=== PATIENT | male | born 1960 | race Caucasian/White ===

== ENCOUNTER 2016-07-17 19:54 | Emergency (ER) | payer OTHER ==
[~2016-07-17 19:54] MED LIST: ADVAIR DISKUS 21 DSK IH; AMOXICILLIN500 MG PO; COLACE100 M1 PO; COZAAR50 MG PO; FLOMAX0.4 MG PO; GABAPENTIN100 M1 PO; HTN MED?; LEVAQUIN500 MG PO; LOSARTAN POTAS100 MG PO; LYRICA50 MG PO; MS-CONTIN15 MG PO; NAPROSYN500 MG PO; NEURONTIN300 MG PO; NORCO 10/325 MG1 TAB PO; NORCO 325 MG-7.1 TAB PO; NORCO 5/325 MG1 TAB PO; NORVASC10 MG PO; NORVASC5 M1 PO; OXYCODONE HCL5 M1 PO; PROPRANOLOL HCL40 M1 PO; PROPRANOLOL HCL40 MG PO; PROVENTIL0.09 MG/A1 IH; ROCEPHIN1 G1 IV; SOMA350 MG PO; SPIRIVA MD18 MCG/CAP INH; TYLENOL #3 300/1 TAB PO; VENTOLIN H0.09 MG/Ac IH; VICODIN 5/500 M1 TAB PO; [UNRECOGNIZED DRUG - REMARK]; [UNRECOGNIZED DRUG - REMARK]
--- NOTE | 2016-07-17 20:32 | NUR ---
CALLED PATIENT'S NAME TWICE
--- NOTE | 2016-07-17 20:38 | NUR ---
PATIENT LEFT WITHOUT BEING SEEN BY DR. RONDON. NO FURTHER CARE PROVIDED FOR PATIENT.
[2016-09-07] MEDS ORDERED: NORVASC10 MG PO (15:35)
[2016-09-17] MEDS ORDERED: NORCO 10-325 T1 EACH PO (12:16)
[2016-09-17] MEDS ORDERED: DULCOLAX PO (12:16)
== END 2016-07-17 20:38 | disposition left against medical advice (07) ==
LOC: MED 19:54
DX: Z53.21 Procedure and treatment not carried out due to patient leaving prior to being seen by health care provider (principal)

== ENCOUNTER 2016-07-18 00:59 | Emergency (ER) | payer OTHER ==
[~2016-07-18] VITALS: Ht 182.9 cm; Wt 68.0 kg
[2016-07-18 01:14] VITALS: BP 173/113
--- NOTE | 2016-07-18 01:32 | NUR ---
PT TAKEN TO BED 6
--- NOTE | 2016-07-18 01:32 | NUR ---
56Y M BIB SELF C/O LEFT FLANK PAIN X 2 DAYS WITH HEMATURIA . PT DENIES DIARRHEA ; SKIN IS PINK/WARM/DRY; AAOX4 WITH EVEN AND STEADY GAIT; LUNGS CLEAR BL; HR EVEN AND REGULAR; PT DENIES ANY FEVER, CP, SOB, OR COUGH AT THIS TIME; PATIENT STATES PAIN OF 8/10 AT THIS TIME; VSS; PATIENT POSITIONED FOR COMFORT; HOB ELEVATED; BEDRAILS UP X2; BED DOWN. ER MD MADE AWARE OF PT STATUS.
--- NOTE | 2016-07-18 01:39 | NUR ---
Dr. Holbrook evaluating patient at bedside.
[2016-07-18] MEDS ORDERED: ACETAMINOPHEN EXTRA STRENGTH 500 MG TAB PO ONE (01:40)
[2016-07-18] MEDS ORDERED: ALBUTEROL SULFATE/IPRATROPIU 3 ML SOL IH ONE (01:55)
--- NOTE | 2016-07-18 02:00 | NUR ---
RT IS AT BEDSIDE
[2016-07-18 04:16] VITALS: BP 142/87
--- NOTE | 2016-07-18 04:16 | NUR ---
Patient discharged with v/s stable. Written and verbal after care instructions given and explained. Patient alert, oriented and verbalized understanding of instructions. Ambulatory with steady gait. All questions addressed prior to discharge. ID band removed. Patient advised to follow up with PMD. Rx of CIRPO 500MG AND FLOMAX given. Patient educated on indication of medication including possible reaction and side effects. Opportunity to ask questions provided and answered.
[2016-09-07] MEDS ORDERED: NORVASC10 MG PO (15:35)
[2016-09-17] MEDS ORDERED: DULCOLAX PO (12:16)
[2016-09-17] MEDS ORDERED: NORCO 10-325 T1 EACH PO (12:16)
== END 2016-07-18 04:16 | disposition home or self-care (01) ==
LOC: MED 00:59
DX: N20.0 Calculus of kidney (principal); N39.0 Urinary tract infection, site not specified; Z88.1 Allergy status to other antibiotic agents; I10 Essential (primary) hypertension; J44.9 Chronic obstructive pulmonary disease, unspecified; Z79.899 Other long term (current) drug therapy
CPT/HCPCS: 74176; 81001; 87086; 94640; 94664; 99285; J7620

== ENCOUNTER 2016-08-29 11:16 | Inpatient (IN) | payer OTHER ==
[~2016-08-29] VITALS: Ht 182.9 cm; Wt 68.0 kg
[~2016-08-29 11:16] MED LIST changes: -ADVAIR DISKUS 21 DSK IH; +ALBU0.0912 IH; +ALBU0.0952 IH; +AMLO10TA PO; -AMOXICILLIN500 MG PO; -COLACE100 M1 PO; -COZAAR50 MG PO; +DOCU-67 PO; -FLOMAX0.4 MG PO; +FLUT1DSK2 IH; +GABA-636 PO; -GABAPENTIN100 M1 PO; -HTN MED?; +HYDR-4452 PO; -LEVAQUIN500 MG PO; -LOSARTAN POTAS100 MG PO; -LYRICA50 MG PO; -MS-CONTIN15 MG PO; -NAPROSYN500 MG PO; -NEURONTIN300 MG PO; -NORCO 10/325 MG1 TAB PO; -NORCO 325 MG-7.1 TAB PO; -NORCO 5/325 MG1 TAB PO; -NORVASC10 MG PO; -NORVASC5 M1 PO; -OXYCODONE HCL5 M1 PO; +PROP40TA29 PO; -PROPRANOLOL HCL40 M1 PO; -PROPRANOLOL HCL40 MG PO; -PROVENTIL0.09 MG/A1 IH; -ROCEPHIN1 G1 IV; -SOMA350 MG PO; +SPIMDI INH; -SPIRIVA MD18 MCG/CAP INH; -TYLENOL #3 300/1 TAB PO; -VENTOLIN H0.09 MG/Ac IH; -VICODIN 5/500 M1 TAB PO; -[UNRECOGNIZED DRUG - REMARK]; -[UNRECOGNIZED DRUG - REMARK]
[2016-08-29 11:24] VITALS: BP 153/116
--- NOTE | 2016-08-29 11:25 | NUR ---
56/M BIB SELF C/O ABDOMINAL PAIN. S/P LAP LUIS 08/18/16. HX HTN, KIDNEY STONES, COPD. BOWEL SOUNDS PRESENT X4. ABD ROUND AND NONTENDER. DENIES FEVER. STS N/V, STS LAST VOMIT YESTERDAY. STS HAVING CONSTIPATION, LAST BM YESTERDAY MORNING BUT VERY LITTLE. ER MD MADE AWARE.
--- NOTE | 2016-08-29 11:30 | NUR ---
Patient being evaluated by physician at bedside.
[2016-08-29] MEDS ORDERED: fentaNYL 0.05 MG/ML VIAL IVP ONE ×2 (11:40→13:40)
[2016-08-29] MEDS ORDERED: ONDANSETRON 4 MG/2 ML VIAL IVP ONE (11:40)
[2016-08-29] MEDS ORDERED: NACL 0.9% 1,000 ML IV ONE (11:40)
[2016-08-29] MEDS ORDERED: ALBUTEROL 0.083% 2.5 MG/3 ML NEBU INH ONE (11:40)
[2016-08-29] MEDS ORDERED: IPRATROPIUM 0.02% 0.5 MG/2.5 ML NEBU INH ONE (11:40)
--- NOTE | 2016-08-29 11:50 | NUR ---
RADIOLOGY AT BEDSIDE
--- NOTE | 2016-08-29 11:55 | NUR ---
ADMITTING DX: ABDOMINAL PAIN HX: COPD AWAKE AND ALERT RESPONSIVE TO CANTEEN MANAGER VERBAL COMMANDS IN [facility] POSITION EDUCATION PROVIDED TO PATIENT WITH ACKNOWLEDGEMENT ON [facility] THERAPY AND RESPIRATORY DRUGS ENCORAGED DEEP BREATH AND COUGH DURING THERAPY TOLERATED WELL WITHOUT INCIDENT
--- NOTE | 2016-08-29 12:00 | NUR ---
RT AT BEDSIDE.
[2016-08-29 12:07] LABS: BASOPHILS # (AUTO) 0.2 K/uL (0.00-0.22); BASOPHILS % (AUTO) 4.9 % (0.0-2.0); EOSINOPHILS # (AUTO) 0.1 K/uL (0-0.4); EOSINOPHILS % (AUTO) 2.4 % (0.0-4.0); HEMATOCRIT 36.3 % (36-52); HEMOGLOBIN 11.9 g/dL (12.0-18.0); LYMPHOCYTES # (AUTO) 1.5 K/uL (2.0-11.5); MEAN CORPUSCULAR HEMOGLOBIN 31 pg (27-31); MEAN CORPUSCULAR HGB CONC 33 g/dL (33-37); MEAN CORPUSCULAR VOLUME 95 fL (80-94); MONOCYTES # (AUTO) 0.5 K/uL (0.8-1.0); MONOCYTES % (AUTO) 10.7 % (1.7-9.3); NEUTROPHILS # (AUTO) 2.5 K/uL (1.8-7.7); PLATELET COUNT (AUTO) 234 K/uL (140-450); RED BLOOD CELL COUNT(AUTO) 3.83 MIL/uL (4.20-6.10); RED CELL DISTRIBUTION WIDTH 13.7 % (11.6-13.7); WHITE BLOOD COUNT (AUTO) 4.8 K/uL (4.8-10.8)
--- NOTE | 2016-08-29 12:10 | NUR ---
20G IV TO RFA.
[2016-08-29 12:13] LABS: ANION GAP 10.3 (8-16); CALCIUM 7.8 mg/dL (8.5-10.1); CARBON DIOXIDE 27.2 mmol/L (21-32); CREATININE 0.8 mg/dL (0.6-1.3); POTASSIUM 3.5 mmol/L (3.5-5.1)
[2016-08-29 12:19] LABS: ALBUMIN 3.5 g/dL (3.4-5.0); TOTAL BILIRUBIN 0.3 mg/dL (0.0-1.0); TOTAL PROTEIN, SERUM 6.3 g/dL (6.4-8.2)
[2016-08-29 12:27] LABS: INR 1.1 (0.8-1.2); PARTIAL THROMBOPLASTIN TIME 28.7 secs (22-35.6); PROTHROMBIN TIME 10.5 secs (10.8-13.4)
--- NOTE | 2016-08-29 13:35 | NUR ---
pt c/o pain. er md made aware. dr. brown at bedside for re-eval.
[2016-08-29] MEDS ORDERED: NACL 0.9% 500 ML IV ONE (13:40)
[2016-08-29] MEDS ORDERED: diphenhydrAMINE 50 MG/ML VIAL IVP ONE (13:40)
--- NOTE | 2016-08-29 14:11 | NUR ---
lab at bedside drawing blood.
[2016-08-29] MEDS ORDERED: cefTRIAXone 1,000 MG VIAL ONE (14:23)
--- NOTE | 2016-08-29 14:38 | NUR ---
CALLED [facility], SPOKE TO RECEIVING JESI LANDIN IN A PT'S ROOM. WILL CALL BACK IN 10MINS.
--- NOTE | 2016-08-29 14:59 | NUR ---
Patient will be admitted to care of DR. BILL. Admited to [facility] FOR INTRACTIBLE ABD PAIN. Will go to room 112-B. Belongings list completed. Report to JESI QURESHI.
[2016-08-29 15:10] VITALS: BP 138/94
[2016-08-29] MEDS ORDERED: ONDANSETRON 4 MG/2 ML VIAL IVP PRN (15:10)
[2016-08-29] MEDS ORDERED: HYDROcodone/APAP 5/325 MG 1 TAB TAB PO PRN (15:10)
[2016-08-29] MEDS ORDERED: ACETAMINOPHEN 325 MG TAB PO PRN (15:10)
--- NOTE | 2016-08-29 15:10 | NUR ---
RECEIVED PT FROM ER VIA GURNEY AWAKE , AAOX4, WITH NO S/S OF RESPIRATORY DISCOMFORT. WITH IV ACCESS ON RIGHT FOREARM 20G PATENT AND INTACT. WITH ABDOMINAL INCISION WITH LAUREN, NO DRAINAGE NOTED, WITH 2 OTHER HEALED ABDOMINAL INCISION, NO S/S OF INFECTION. PATIENT COMPLAINED OF TENDERNESS OF ABDOMEN. LUNGS ARE CLEAR UPON AUSCULTATION. ORIENTED PT TO ENVIRONMENT AND USE OF PHONE AND CALL LIGHTS. WOUND PHOTOS TAKEN AND AFFIXED IN CHART. CALL LIGHT WITHIN REACH, WILL CONTINUE TO MONITOR.
[2016-08-29 15:45] LABS: AMYLASE 46 U/L (25-115); FREE T4 (FREE THYROXINE) 0.96 ng/dL (0.76-1.46); MAGNESIUM 1.9 mg/dL (1.8-2.4); PHOSPHORUS 2.9 mg/dL (2.5-4.9); THYROID STIMULATING HORMONE 1.75 uIU/mL (0.34-3.76)
[2016-08-29 15:46] LABS: ALCOHOL, BLOOD < 3 mg/dL (<3)
[2016-08-29] MEDS: NACL 0.9% 1,000 ML IV SCH (16:06)
[2016-08-29] MEDS: GABAPENTIN 100 MG CAP PO SCH (17:06)
--- NOTE | 2016-08-29 17:38 | NUR ---
ASLEEP EASILY AWAKENS PATIENT ASSESSMENT COMPLETED PATIENT DENIES SOB NO RESPIRATORY DISTRESS NOTED
--- NOTE | 2016-08-29 17:40 | NUR ---
PT ASLEEP AT THIS TIME. CALL LIGHT WITHIN REACH, WILL CONTINUE TO MONITOR.
--- NOTE | 2016-08-29 19:25 | NUR ---
ENDORSED PT TO BENNETT DENNISON IN STABLE CONDITION FOR CONTINUITY OF CARE
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
[2016-08-29] MEDS: HYDROmorphone 1 MG/ML AMP IVP PRN (19:58)
[2016-08-29 20:00] VITALS: BP 140/65
[2016-08-29] MEDS: LEVOFLOXACIN 500 MG/D5W PREMIX 100 ML IV SCH (20:11)
[2016-08-29] MEDS: ALBUTEROL SULFATE/IPRATROPIU 3 ML SOL IH PRN (20:11)
[2016-08-29] MEDS: metroNIDAZOLE 500 MG/NS PREMIX 100 ML IV SCH (21:28)
--- NOTE | 2016-08-29 21:42 | NUR ---
CALLED SECURITY TO ESCORT FAMILY OUT, FAMILY WAS GETTING LOUD AND ARGUING, HEARD A LOUD BANG. SECURITY ESCORTED FAMILY OUT. PATIENT STATES HE IS OKAY. FAMILY LEFT
[2016-08-29] MEDS: oxyCODONE/APAP 5/325 MG 1 TAB TAB PO PRN (21:48)
[2016-08-29 22:21] LABS: APPEARANCE,URINE CLEAR (CLEAR); BILIRUBIN,URINE NEGATIVE (NEGATIVE); BLOOD, URINE 1+ (NEGATIVE); COLOR,URINE YELLOW (YELLOW); LEUKOCYTE ESTERASE ,URINE NEGATIVE (NEGATIVE); NITRITE, URINE NEGATIVE (NEGATIVE); PH,URINE 6.5 (5.0-9.0); PROTEIN,URINE NEGATIVE (NEGATIVE); UGLUCOSE NEGATIVE (NEGATIVE); UROBILINOGEN,URINE 0.2 EU/dL (0.2 - 1)
[2016-08-29 22:26] LABS: AMPHETAMINE, URINE NEG. ng/ml (NEG <=1000); BARBITURATE, URINE NEG. ng/ml (NEG <=200); BENZODIAZEPINE, URINE NEG. ng/mL (NEG <=200); CANNABINOID, URINE NEG. ng/mL (NEG <=50); COCAINE, URINE NEG. ng/mL (NEG <=300); OPIATE, URINE NEG. ng/mL (NEG <=2000); PHENCYCLIDINE SCREEN,URINE NEG. ng/mL (NEG <=25)
[2016-08-29 22:37] LABS: BACTERIA,URINE None Seen /HPF (None Seen); SQUAMOUS EPITHELIAL CELL,UR 0-3 (FEW) /LPF (0-3 (FEW)); WBC,URINE 0-5 (RARE) /HPF (0-5)
[2016-08-30] VITALS: BP 131/85
--- NOTE | 2016-08-30 00:15 | NUR ---
PATIENT C/O PAIN 01/09, STATED THE DILAUDED AND PERCOCET ORDERED DID NOT HELP THE PAIN AND HE CANT SLEEP. PATIENT ASKED IF I COULD CALL MD TO SEE ABOUT GETTING MORE PAIN MEDS AND IF HE CAN HAVE CHICKEN BROTH. SPOKE WITH MD OSPINA, SEW ON OPERATOR FOR DR BILL. EXPLAINED PATIENT SITUATION AND MD STATED SHE WILL EVALUATE AND PUT IN ORDERS, WILL F/U WITH ORDERS. PATIENT VITAL SIGNS STABLE, CALL LIGHT WITHIN REACH. WILL CONTINUE TO MONITOR.
[2016-08-30] MEDS: NACL 0.9% 1,000 ML IV SCH ×4 (00:28→23:47)
[2016-08-30] MEDS ORDERED: HYDROmorphone 1 MG/ML AMP IVP SCH (01:50)
[2016-08-30] MEDS: HYDROmorphone 1 MG/ML AMP IVP PRN ×2 (02:00→08:11)
--- NOTE | 2016-08-30 02:30 | NUR ---
PATIENT C/O 01/09 ABDOMINAL PAIN, ADMINISTERED PAIN MEDS PER MD ORDER, BP ELEVATED TO 155/106, GAVE PAIN MED AND REASSESSED BP WENT DOWN TO 143/91. CALL LIGHT WITHIN REACH WILL CONTINUE TO MONITOR.
[2016-08-30] MEDS: metroNIDAZOLE 500 MG/NS PREMIX 100 ML IV SCH ×3 (04:20→21:53)
--- NOTE | 2016-08-30 04:33 | NUR ---
PATIENT RESTING IN BED WITH EYES CLOSED. PATIENT STATED HE IS STILL IN A LOT OF PAIN, STATED HE IS JUST TRYING TO REST MUCH POSSIBLE. NO SOB OR SIGN OF DISTRESS AT THIS TIME, CALL LIGHT WITHIN REACH. WILL CONTINUE TO MONITOR.
--- NOTE | 2016-08-30 06:22 | NUR ---
PATIENT SLEEPING, NO SOB OR SIGN OF DISTRESS, CALL LIGHT WITHIN REACH. WILL CONTINUE TO MONITOR.
[2016-08-30 06:35] LABS: BASOPHILS # (AUTO) 0.1 K/uL (0.00-0.22); BASOPHILS % (AUTO) 4.1 % (0.0-2.0); EOSINOPHILS # (AUTO) 0.1 K/uL (0-0.4); EOSINOPHILS % (AUTO) 4.4 % (0.0-4.0); HEMATOCRIT 35.3 % (36-52); HEMOGLOBIN 11.5 g/dL (12.0-18.0); LYMPHOCYTES # (AUTO) 1.2 K/uL (2.0-11.5); MEAN CORPUSCULAR HEMOGLOBIN 31 pg (27-31); MEAN CORPUSCULAR HGB CONC 32 g/dL (33-37); MEAN CORPUSCULAR VOLUME 94 fL (80-94); MONOCYTES # (AUTO) 0.4 K/uL (0.8-1.0); MONOCYTES % (AUTO) 12.7 % (1.7-9.3); NEUTROPHILS % (AUTO) 35.8 % (42.2-75.2); PLATELET COUNT (AUTO) 184 K/uL (140-450); RED BLOOD CELL COUNT(AUTO) 3.74 MIL/uL (4.20-6.10); RED CELL DISTRIBUTION WIDTH 13.4 % (11.6-13.7); WHITE BLOOD COUNT (AUTO) 2.8 K/uL (4.8-10.8)
[2016-08-30 07:25] LABS: ANION GAP 12.1 (8-16); CALCIUM 7.8 mg/dL (8.5-10.1); CARBON DIOXIDE 26.6 mmol/L (21-32); CREATININE 0.8 mg/dL (0.6-1.3); POTASSIUM 3.7 mmol/L (3.5-5.1)
[2016-08-30 07:29] LABS: CHOL/HDL RATIO 4.2 (1-4.5); MAGNESIUM 1.9 mg/dL (1.8-2.4); PHOSPHORUS 3.3 mg/dL (2.5-4.9)
--- NOTE | 2016-08-30 07:30 | NUR ---
ENDORSED REPORT TO DAY RN AT BEDSIDE, PATIENT IN STABLE CONDITION
--- NOTE | 2016-08-30 07:31 | NUR ---
PT ALERT AND ORIENTED X4. BREATHING EVENLY AND UNLABORED. NO SIGNS OF ACUTE DISTRESS. SKIN IS WAR, AND DRY. NO SIGNS OF ANY BOWEL OR BLADDER DISCOMFORT. C/O ABDOMINAL PAIN 01/09. WILL MEDICATE ORDERED. PLACED ON A COMFORTABLE POSITION, PROMOTED RELAXATION. SAFETY PRECAUTIONS MAINTAINED. CALL LIGHT WITHIN REACH.
--- NOTE | 2016-08-30 07:55 | NUR ---
PATIENT HAS BEEN SCREENED AND CATEGORIZED HIGH NUTRITION RISK. PATIENT WILL BE SEEN WITHIN 1-2 DAYS OF ADMISSION. 08/30/16-08/31/[address]
[2016-08-30 08:00] VITALS: BP 157/90
[2016-08-30] MEDS: GABAPENTIN 100 MG CAP PO SCH ×3 (08:11→16:34)
[2016-08-30] MEDS ORDERED: PROPRANOLOL HCL 40 MG PO SCH (09:00)
[2016-08-30] MEDS ORDERED: PROPRANOLOL 20 MG TAB PO SCH (09:00)
[2016-08-30] MEDS ORDERED: amLODIPine 5 MG TAB PO SCH (09:00)
[2016-08-30] MEDS ORDERED: LACTOBACILLUS RHAMNOSUS GG 1 EACH CAP PO SCH (09:00)
--- NOTE | 2016-08-30 09:11 | NUR ---
RECEIVED ORDER FROM DR. PAYNE. REMOVE SURGICAL LAUREN ON ABDOMINAL AREA. NOTED AND CARRIED OUT. 5 LAUREN REMOVED. NO BLEEDING OR DISCHARGE NOTED. KEPT CLEAN AND DRY. CONTINUE TO MONITOR.
--- NOTE | 2016-08-30 10:33 | NUR ---
FAXED INITIAL [place] [facility] [place] [phone] PHONE FIDEL [phone]
[2016-08-30] MEDS: oxyCODONE/APAP 5/325 MG 1 TAB TAB PO PRN ×3 (10:52→23:45)
[2016-08-30 12:00] VITALS: BP 155/92
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
--- NOTE | 2016-08-30 14:12 | NUR ---
CHANGED DIET ORDER TO NPO EXCEPT MEDS. PT AWARE. NOTED AND CARRIED OUT.
[2016-08-30] MEDS ORDERED: ALUMINUM HYD/MAG/SIMETHICONE 30 ML UDC PO SCH (14:30)
--- NOTE | 2016-08-30 15:02 | NUR ---
08/30/16 RD INITIAL ASSESSMENT COMPLETED PLEASE REFER TO NUTRITION ASSESSMENT UNDER CARE ACTIVITY FOR ESTIMATED NUTRITIONAL NEEDS. RD RECOMMENDATIONS: 1. CONTINUE NPO MEDICALLY NECESSARY PER MD 2. WHEN PT MEDICALLY CLEARED TO ADVANCE DIET, CONSIDER ADVANCE TO CLEAR LIQUID DIET, THEN ADVANCE DIET TO FULL LIQUID, AND THEN TO REGULAR PT TOLERATES EACH DIET. 3. RD WILL F/U 3-5 DAYS; MODERATE RISK. PAMELLA MILLER RD
[2016-08-30 16:00] VITALS: BP 137/89
--- NOTE | 2016-08-30 16:10 | NUR ---
PT PLACED ON MED SURG LEVEL OF CARE ORDERED BY DR. PAYNE. CONTINUE TO MONITOR.
[2016-08-30] MEDS: ALBUTEROL SULFATE/IPRATROPIU 3 ML SOL IH PRN (17:49)
--- NOTE | 2016-08-30 18:58 | NUR ---
PT ALERT AND RESPONSIVE NO SIGNS OF ACUTE DISTRESS. ENDORSED TO ONCOMING DISINTEGRATOR OPERATOR NURSE FOR CONTINUITY OF CARE.
--- NOTE | 2016-08-30 19:15 | NUR ---
PATIENT IS CURRENTLY RESTING IN BED IVF INFUSING WELL IV SITE PATENT NO INFILTRATION NOTED.PT HAS NO COMPLAINS OF PAIN OR DISCOMFORT AT THIS TIME. PATIENT HAS FRIENDS AND FAMILY AT BEDSIDE AND HIS TALKING AND SMILING.INCISIONS TO ABD ARE SURGICAL SERVICES ASSISTANT AND HEALED. PATIENT HAS SCD'S AT BEDSIDE BUT REFUSES TO WEAR THEM AT THIS TIME PATIENT VERBALIZES UNDERSTANDING ON THE PURPOSE OF WEARING THEM TO PREVENT BLOOD CLOTS.PATIENT CONTINUES TO USE THE URINAL ALSO.PATIENT CALL LIGHT WITHIN REACH AT THIS TIME.WILL CONTINUE TO MONITOR.
[2016-08-30 20:00] VITALS: BP 123/86
--- NOTE | 2016-08-30 20:00 | NUR ---
Patient's Plan of Care was discussed and reviewed with THREAD MACHINE OPERATOR: JAMEL CALDERA
--- NOTE | 2016-08-30 20:19 | NUR ---
I CALLED THE EXCHANGE FOR MD BILL PATIENT STATES,"CAN GET AN ORDER FOR IV MEDICATION PATIENT STATES,"I DON'T LIKE THE PERCOCET TABLET IV MEDS WORK BETTER FOR ME."WILL AWAIT FOR MD MARIN CALL BACK.
--- NOTE | 2016-08-30 20:20 | NUR ---
MD MARIN CALLED BACK AND SHE WAS INFORMED THAT PATIENT IS REQUESTING ANOTHER FORM OF PAIN MEDICATION PREFERABLY IV BECAUSE PT STATES," HE HAS SEVERE PAIN AND HE DOESN'T LIKE THE PERCOCET." STATES,"PATIENT'S PAIN IS MOSTLY NERVE PAIN AND HE IS CURRENTLY ON NEURONTIN HE CAN CONTINUE RECEIVING PERCOCET FOR HIS PAIN AND ALSO OFFER TYLENOL." I ASKED MD IS PATIENT CAN GET ANY IV MEDICATION FOR HIS SEVERE PAIN. IS AWARE BUT GAVE NO NEW ORDERS FOR IV MEDS JUST TOLD ME TO CONTINUE TO GIVE HIM THE PERCOCET AND OFFER TYLENOL.
[2016-08-30] MEDS: LEVOFLOXACIN 500 MG/D5W PREMIX 100 ML IV SCH (20:49)
--- NOTE | 2016-08-30 22:45 | NUR ---
EDUCATION GIVEN TO THE PATIENT ON THE PURPOSE OF WEARING SCD'S FOR DVT PROPHALAXIS PATIENT REFUSED. PATIENT STATES,"I WALK TO THE BATHROOM I DON'T NEED THEM."
[2016-08-31] VITALS: BP 142/102
--- NOTE | 2016-08-31 00:07 | NUR ---
PATIENT IS AWAKE WATCHING TV,IVF INFUSING WELL IV SITE PATENT WILL CONTINUE TO MONITOR.CALL LIGHT WITHIN REACH.VS TAKEN B/P SLIGHTLY HIGH WILL RECHECK IN ABOUT ANOTHER HOUR AFTER HIS PAIN IS BETTER.
[2016-08-31 01:00] VITALS: BP 142/99
--- NOTE | 2016-08-31 01:00 | NUR ---
B/P RECHECKED CURRENTLY 142/99 AND PREVIOUSLY 142/102.PATIENT AWAKE AND WATCHING TV.WILL CONTINUE TO MONITOR.
--- NOTE | 2016-08-31 04:25 | NUR ---
RENETTA GARCIA AND RENETTA BARRERA REPORTED TO ME AND ROOTER OPERATOR NURSE RUDDY THAT WHEN THEY WALKED IN THE PATIENTS ROOM IT SMELLED LIKE SMOKE. I WALKED IN THE ROOM AND SMELLS LIKE CIGARETTES BUT I SEE NO SMOKE PATIENT IS CURRENTLY IN THE BATHROOM WHEN HE CAME OUT.PATIENT SAID,"NO I DIDN'T SMOKE." PATIENT SHOWED ROOTER OPERATOR NURSE FABIOLAON HIS CIGARETTES THAT HE HAD IN A SWEATER AND DENIES SMOKING IN THE ROOM.EDUCATION GIVEN TO THE PATIENT ABOUT NOT SMOKING PT VERBALIZES UNDERSTANDING AND DENIES SMOKING IN THE ROOM OR BATHROOM.WILL CONTINUE TO MONITOR.
[2016-08-31] MEDS: metroNIDAZOLE 500 MG/NS PREMIX 100 ML IV SCH (04:29)
--- NOTE | 2016-08-31 05:42 | NUR ---
PATIENT CONTINUES TO BE AWAKE WAS GIVEN WARM BLANKETS PER PATIENTS REQUEST AND PATIENT COMPLAINS OF MODERATE PAIN WILL BE MEDICATED ORDERED WILL CONTINUE TO OBSERVE.
[2016-08-31] MEDS: oxyCODONE/APAP 5/325 MG 1 TAB TAB PO PRN (05:47)
[2016-08-31 07:16] LABS: BASOPHILS # (AUTO) 0.1 K/uL (0.00-0.22); BASOPHILS % (AUTO) 3.8 % (0.0-2.0); EOSINOPHILS # (AUTO) 0.1 K/uL (0-0.4); EOSINOPHILS % (AUTO) 1.9 % (0.0-4.0); HEMATOCRIT 37.6 % (36-52); HEMOGLOBIN 12.6 g/dL (12.0-18.0); LYMPHOCYTES # (AUTO) 0.8 K/uL (2.0-11.5); LYMPHOCYTES % (AUTO) 28.4 % (20.5-51.1); MEAN CORPUSCULAR HEMOGLOBIN 32 pg (27-31); MEAN CORPUSCULAR HGB CONC 34 g/dL (33-37); MEAN CORPUSCULAR VOLUME 94 fL (80-94); MONOCYTES # (AUTO) 0.3 K/uL (0.8-1.0); MONOCYTES % (AUTO) 10.7 % (1.7-9.3); NEUTROPHILS # (AUTO) 1.6 K/uL (1.8-7.7); NEUTROPHILS % (AUTO) 55.2 % (42.2-75.2); PLATELET COUNT (AUTO) 240 K/uL (140-450); RED BLOOD CELL COUNT(AUTO) 4.01 MIL/uL (4.20-6.10); RED CELL DISTRIBUTION WIDTH 12.8 % (11.6-13.7); WHITE BLOOD COUNT (AUTO) 2.9 K/uL (4.8-10.8)
--- NOTE | 2016-08-31 07:20 | NUR ---
PT STABLE AWAKE RESTING IN BED REPORT ENDORSED TO JESI SUAREZ AT BEDSIDE.HE WILL RESUME CARE OF THE PATIENT.
--- NOTE | 2016-08-31 07:30 | NUR ---
RECEIVED REPORT FROM NIGHT NURSE. AOX4, PT RESTING IN BED. NO C/O ACUTE DISTRESS, NO SOB OR CP. IV ACCESS ASYMPTOMATIC, PATENT AND INTACT. PT REQUESTED TO KEEP IV SALINE LOCKED. S/P LAP LUIS, INCISION SITE, NO S/S OF ACUTE INFECTION. ROUTINE/PLAN OF CARE DISCUSSED AND REVIEWED, PT VERBALIZES UNDERSTANDING AND COMPLIANCE. SAFETY MEASURES IN PLACE. WILL CONTINUE TO MONITOR.
[2016-08-31 07:57] VITALS: BP 142/104
--- NOTE | 2016-08-31 08:15 | NUR ---
PT NOT FOUND IN ROOM OR AROUND UNIT. PT BELONGINGS NOT AT BEDSIDE. NOTIFIED SECURITY AND CHARGE NURSE.
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
--- NOTE | 2016-08-31 08:35 | NUR ---
NOTIFIED DR TOMLINSON.
--- NOTE | 2016-08-31 09:00 | NUR ---
SECURITY CAMERA CONFIRMED PT [facility] AT 0800.
== END 2016-08-31 08:00 | disposition left against medical advice (07) | DRG 392 ==
LOC: MED 11:24 → MTU 14:27
PROVIDERS: ADMIT Family Medicine; ATTEND Family Medicine
DX: K57.32 Diverticulitis of large intestine without perforation or abscess without bleeding (principal); I42.0 Dilated cardiomyopathy; K57.30 Diverticulosis of large intestine without perforation or abscess without bleeding; J44.9 Chronic obstructive pulmonary disease, unspecified; I10 Essential (primary) hypertension; K76.0 Fatty (change of) liver, not elsewhere classified; F17.210 Nicotine dependence, cigarettes, uncomplicated; Z90.49 Acquired absence of other specified parts of digestive tract; Z72.89 Other problems related to lifestyle; Z88.8 Allergy status to other drugs, medicaments and biological substances; Z88.6 Allergy status to analgesic agent; Z79.899 Other long term (current) drug therapy; Z87.442 Personal history of urinary calculi; Z81.8 Family history of other mental and behavioral disorders
CPT/HCPCS: 36415; 71010; 76705; 80048; 80053; 80305; 81001; 82150; 83036; 83605; 83690; 83735; 83880; 84100; 84439; 84443; 84484; 85025; 85610; 85730; 87040; 87081; 93005; 94640; 96374; 96375; 96376; 99285; G0482; J0696; J1170; J1200; J1956; J2405; J3010; J3490; J7030; J7060; J7613; J7620; J7644; Q0092; Q9967

== ENCOUNTER 2016-09-07 15:16 | Emergency (ER) | payer OTHER ==
[~2016-09-07] VITALS: Ht 177.8 cm; Wt 67.6 kg
[2016-09-07] MEDS ORDERED: AMLO10TA PO (15:35)
[2016-09-07 15:36] VITALS: BP 144/87
--- NOTE | 2016-09-07 17:20 | NUR ---
Patient ambulated to bed 8. RN evaluating patient at bedside.
[2016-09-07] MEDS ORDERED: NACL 0.9% 1,000 ML IV SCH (17:21)
[2016-09-07] MEDS ORDERED: HYDROmorphone 1 MG/ML AMP IVP ONE (17:25)
[2016-09-07] MEDS ORDERED: FAMOTIDINE 20 MG/2 ML VIAL IVP ONE (17:25)
[2016-09-07] MEDS ORDERED: ONDANSETRON 4 MG/2 ML VIAL IVP ONE (17:25)
--- NOTE | 2016-09-07 17:50 | NUR ---
PATIENT PRESENTS TO ED WITH RUQ PAIN AND NAUSEA . PT STATES SKIN IS PINK/WARM/DRY; AAOX4 WITH EVEN AND STEADY GAIT; LUNGS CLEAR BL; HR EVEN AND REGULAR; PT DENIES ANY FEVER, CP, SOB, OR COUGH AT THIS TIME; PATIENT STATES PAIN OF 10/10 AT THIS TIME; VSS; PATIENT POSITIONED FOR COMFORT; HOB ELEVATED; BEDRAILS UP X2; BED DOWN. ER MD MADE AWARE OF PT STATUS.
[2016-09-07 18:03] LABS: BASOPHILS # (AUTO) 0.1 K/uL (0.00-0.22); BASOPHILS % (AUTO) 0.8 % (0.0-2.0); EOSINOPHILS # (AUTO) 0.1 K/uL (0-0.4); EOSINOPHILS % (AUTO) 1.6 % (0.0-4.0); HEMOGLOBIN 13.6 g/dL (12.0-18.0); LYMPHOCYTES # (AUTO) 0.3 K/uL (2.0-11.5); LYMPHOCYTES % (AUTO) 3.4 % (20.5-51.1); MEAN CORPUSCULAR HEMOGLOBIN 31 pg (27-31); MEAN CORPUSCULAR HGB CONC 32 g/dL (33-37); MEAN CORPUSCULAR VOLUME 96 fL (80-94); MONOCYTES # (AUTO) 0.1 K/uL (0.8-1.0); MONOCYTES % (AUTO) 1.2 % (1.7-9.3); NEUTROPHILS # (AUTO) 7.2 K/uL (1.8-7.7); PLATELET COUNT (AUTO) 255 K/uL (140-450); RED BLOOD CELL COUNT(AUTO) 4.39 MIL/uL (4.20-6.10); RED CELL DISTRIBUTION WIDTH 13.5 % (11.6-13.7); WHITE BLOOD COUNT (AUTO) 7.8 K/uL (4.8-10.8)
[2016-09-07 18:14] LABS: ANION GAP 12.2 (8-16); CALCIUM 8.7 mg/dL (8.5-10.1); CARBON DIOXIDE 26.9 mmol/L (21-32); CREATININE 0.9 mg/dL (0.6-1.3); POTASSIUM 4.1 mmol/L (3.5-5.1)
[2016-09-07 18:20] LABS: TOTAL BILIRUBIN 0.3 mg/dL (0.0-1.0); TOTAL PROTEIN, SERUM 7.1 g/dL (6.4-8.2)
--- NOTE | 2016-09-07 18:44 | NUR ---
Patient discharged with v/s stable. Written and verbal after care instructions given and explained. Patient alert, oriented and verbalized understanding of instructions. Ambulatory with steady gait. All questions addressed prior to discharge. ID band removed. Patient advised to follow up with PMD. Rx of ZOFRAN/NORCO given. Patient educated on indication of medication including possible reaction and side effects. Opportunity to ask questions provided and answered.
--- NOTE | 2016-09-07 18:44 | NUR ---
PT A/O X4 DENIES ABDOMINAL PAIN NO NAUSEA OR EMESIS AT THIS TIME-- SPOKE WITH PT AND OKAYED FOR DC HOME
[2016-09-07 18:47] VITALS: BP 147/97
== END 2016-09-07 18:44 | disposition home or self-care (01) ==
LOC: MED 15:16
DX: R10.31 Right lower quadrant pain (principal); J44.9 Chronic obstructive pulmonary disease, unspecified; I10 Essential (primary) hypertension; F17.200 Nicotine dependence, unspecified, uncomplicated; Z87.442 Personal history of urinary calculi; Z88.6 Allergy status to analgesic agent; Z90.5 Acquired absence of kidney; Z90.49 Acquired absence of other specified parts of digestive tract
CPT/HCPCS: 36415; 80053; 82150; 83690; 85025; 96361; 96374; 96375; 99284; J1170; J2405; J3490; J7030

== ENCOUNTER 2016-09-10 19:27 | Emergency (ER) | payer OTHER ==
[~2016-09-10] VITALS: Ht 182.9 cm; Wt 68.0 kg
[2016-09-10 19:43] VITALS: BP 160/115
--- NOTE | 2016-09-11 00:36 | NUR ---
TO ER BED 8
--- NOTE | 2016-09-11 00:46 | NUR ---
PATIENT PRESENTS TO ED WITH RT UPPER AND LOWER QUADRANT ABD PAIN WITH DIARRHEA . PT STATES HE WAS HERE YESTERDAY AND PAIN HAS WORSENED . DENIES N/V; SKIN IS PINK/WARM/DRY; AAOX4 WITH EVEN AND STEADY GAIT; LUNGS CLEAR BL; HR EVEN AND REGULAR; PT DENIES ANY FEVER, CP, SOB, OR COUGH AT THIS TIME; PATIENT STATES PAIN OF 8/10 AT THIS TIME; VSS; PATIENT POSITIONED FOR COMFORT; HOB ELEVATED; BEDRAILS UP X2; BED DOWN. ER MD MADE AWARE OF PT STATUS.
[2016-09-11] MEDS ORDERED: HYDROmorphone 1 MG/ML AMP IVP ONE ×2 (01:15→06:20)
[2016-09-11 01:32] LABS: BASOPHILS # (AUTO) 0.1 K/uL (0.00-0.22); EOSINOPHILS # (AUTO) 0.1 K/uL (0-0.4); LYMPHOCYTES # (AUTO) 1.1 K/uL (2.0-11.5)
--- NOTE | 2016-09-11 01:32 | NUR ---
PT TO CT AT THIS TIME
[2016-09-11 01:34] LABS: APPEARANCE,URINE SL CLOUDY (CLEAR); BILIRUBIN,URINE NEGATIVE (NEGATIVE); BLOOD, URINE 1+ (NEGATIVE); COLOR,URINE YELLOW (YELLOW); LEUKOCYTE ESTERASE ,URINE NEGATIVE (NEGATIVE); NITRITE, URINE NEGATIVE (NEGATIVE); PROTEIN,URINE NEGATIVE (NEGATIVE); UGLUCOSE NEGATIVE (NEGATIVE); UROBILINOGEN,URINE 0.2 EU/dL (0.2 - 1)
[2016-09-11 01:39] LABS: BASOPHILS % (AUTO) 2.7 % (0.0-2.0); EOSINOPHILS % (AUTO) 2.5 % (0.0-4.0); HEMOGLOBIN 13.7 g/dL (12.0-18.0); LYMPHOCYTES % (AUTO) 24.2 % (20.5-51.1); MEAN CORPUSCULAR HEMOGLOBIN 31 pg (27-31); MEAN CORPUSCULAR HGB CONC 33 g/dL (33-37); MEAN CORPUSCULAR VOLUME 94 fL (80-94); MONOCYTES # (AUTO) 0.5 K/uL (0.8-1.0); MONOCYTES % (AUTO) 11.1 % (1.7-9.3); NEUTROPHILS # (AUTO) 2.6 K/uL (1.8-7.7); NEUTROPHILS % (AUTO) 59.5 % (42.2-75.2); PLATELET COUNT (AUTO) 264 K/uL (140-450); RED BLOOD CELL COUNT(AUTO) 4.37 MIL/uL (4.20-6.10); RED CELL DISTRIBUTION WIDTH 13.2 % (11.6-13.7); WHITE BLOOD COUNT (AUTO) 4.4 K/uL (4.8-10.8)
[2016-09-11 01:48] LABS: ALBUMIN 4.2 g/dL (3.4-5.0); ANION GAP 13.7 (8-16); CALCIUM 8.9 mg/dL (8.5-10.1); CARBON DIOXIDE 26.9 mmol/L (21-32); CREATININE 0.9 mg/dL (0.6-1.3); POTASSIUM 3.6 mmol/L (3.5-5.1); TOTAL BILIRUBIN 0.5 mg/dL (0.0-1.0); TOTAL PROTEIN, SERUM 7.4 g/dL (6.4-8.2)
[2016-09-11 01:49] LABS: BACTERIA,URINE None Seen /HPF (None Seen); RBC,URINE 0-5 (RARE) /HPF (0-5); SQUAMOUS EPITHELIAL CELL,UR 0-3 (FEW) /LPF (0-3 (FEW)); WBC,URINE 0-5 (RARE) /HPF (0-5)
[2016-09-11 01:50] LABS: MUCUS,URINE 1+ /LPF (None Seen)
[2016-09-11 06:49] VITALS: BP 152/98
--- NOTE | 2016-09-11 07:07 | NUR ---
Patient discharged with v/s stable. Written and verbal after care instructions given and explained. Patient alert, oriented and verbalized understanding of instructions. Ambulatory with steady gait. All questions addressed prior to discharge. ID band removed. Patient advised to follow up with PMD. Rx of CIPROFLOXACIN 500MG PO BID AND FLAGYL 500MG PO TID given. Patient educated on indication of medication including possible reaction and side effects. Opportunity to ask questions provided and answered.
== END 2016-09-11 06:49 | disposition home or self-care (01) ==
LOC: MED 19:28
DX: K52.9 Noninfective gastroenteritis and colitis, unspecified (principal); J44.9 Chronic obstructive pulmonary disease, unspecified; Z90.49 Acquired absence of other specified parts of digestive tract; F17.210 Nicotine dependence, cigarettes, uncomplicated; Z88.6 Allergy status to analgesic agent; Z88.8 Allergy status to other drugs, medicaments and biological substances
CPT/HCPCS: 36415; 74150; 80053; 81001; 82150; 83690; 85025; 96374; 96376; 99285; J1170; J7030

== ENCOUNTER 2016-09-12 09:43 | Emergency (ER) | payer OTHER ==
[~2016-09-12] VITALS: Ht 180.3 cm; Wt 63.5 kg
[2016-09-12 09:48] VITALS: BP 146/116
--- NOTE | 2016-09-12 09:59 | NUR ---
56/M present to ER c/o lower left / mid abdominal pain x 5 days----with n/v/d --.AAOx4, PERLLA, patient breathing even and effortless, pain 7/10 lower abdomen non-radiating, patient states he was seen in ER yesterday for same complaints. ERMD notified of patient status. Will continue to monitor.
--- NOTE | 2016-09-12 10:08 | NUR ---
Patient being evaluated by physician at bedside.
[2016-09-12] MEDS: HYDROmorphone 1 MG/ML AMP IM ONE (10:23)
[2016-09-12 10:40] LABS: BASOPHILS # (AUTO) 0.1 K/uL (0.00-0.22); BASOPHILS % (AUTO) 1.5 % (0.0-2.0); EOSINOPHILS # (AUTO) 0.1 K/uL (0-0.4); EOSINOPHILS % (AUTO) 2.2 % (0.0-4.0); HEMATOCRIT 40.1 % (36-52); HEMOGLOBIN 13.2 g/dL (12.0-18.0); LYMPHOCYTES # (AUTO) 0.9 K/uL (2.0-11.5); LYMPHOCYTES % (AUTO) 24.4 % (20.5-51.1); MEAN CORPUSCULAR HEMOGLOBIN 31 pg (27-31); MEAN CORPUSCULAR HGB CONC 33 g/dL (33-37); MEAN CORPUSCULAR VOLUME 95 fL (80-94); MONOCYTES # (AUTO) 0.4 K/uL (0.8-1.0); MONOCYTES % (AUTO) 10.2 % (1.7-9.3); NEUTROPHILS # (AUTO) 2.3 K/uL (1.8-7.7); NEUTROPHILS % (AUTO) 61.7 % (42.2-75.2); PLATELET COUNT (AUTO) 282 K/uL (140-450); RED BLOOD CELL COUNT(AUTO) 4.23 MIL/uL (4.20-6.10); RED CELL DISTRIBUTION WIDTH 13.3 % (11.6-13.7); WHITE BLOOD COUNT (AUTO) 3.8 K/uL (4.8-10.8)
[2016-09-12 10:53] LABS: APPEARANCE,URINE CLEAR (CLEAR); BILIRUBIN,URINE NEGATIVE (NEGATIVE); BLOOD, URINE 1+ (NEGATIVE); COLOR,URINE YELLOW (YELLOW); LEUKOCYTE ESTERASE ,URINE NEGATIVE (NEGATIVE); NITRITE, URINE NEGATIVE (NEGATIVE); PROTEIN,URINE NEGATIVE (NEGATIVE); UGLUCOSE NEGATIVE (NEGATIVE); UROBILINOGEN,URINE 0.2 EU/dL (0.2 - 1)
[2016-09-12 11:02] LABS: ANION GAP 12.9 (8-16); CALCIUM 9.3 mg/dL (8.5-10.1); CARBON DIOXIDE 26.1 mmol/L (21-32); CREATININE 0.9 mg/dL (0.6-1.3)
[2016-09-12 11:08] LABS: ALBUMIN 3.9 g/dL (3.4-5.0); TOTAL BILIRUBIN 0.4 mg/dL (0.0-1.0); TOTAL PROTEIN, SERUM 7.2 g/dL (6.4-8.2)
[2016-09-12 11:11] LABS: BACTERIA,URINE OCCASSIONAL /HPF (None Seen); SQUAMOUS EPITHELIAL CELL,UR 0-3 (FEW) /LPF (0-3 (FEW)); WBC,URINE 0-5 (RARE) /HPF (0-5)
--- NOTE | 2016-09-12 11:52 | NUR ---
Patient discharged with v/s stable. Written and verbal after care instructions given and explained. Patient alert, oriented and verbalized understanding of instructions. Ambulatory with steady gait. All questions addressed prior to discharge. ID band removed. Patient advised to follow up with PMD. Rx of norco 5/325mg abd omeprazole 40mg given. Patient educated on indication of medication including possible reaction and side effects. Opportunity to ask questions provided and answered.
[2016-09-12 11:53] VITALS: BP 142/82
== END 2016-09-12 11:52 | disposition home or self-care (01) ==
LOC: MED 09:43
DX: K21.9 Gastro-esophageal reflux disease without esophagitis (principal); I10 Essential (primary) hypertension; G89.29 Other chronic pain; F17.210 Nicotine dependence, cigarettes, uncomplicated; J44.9 Chronic obstructive pulmonary disease, unspecified; N28.9 Disorder of kidney and ureter, unspecified; Z71.6 Tobacco abuse counseling; Z90.89 Acquired absence of other organs
CPT/HCPCS: 36415; 80053; 81001; 82150; 83690; 85025; 85651; 86140; 96372; 99284; J1170

== ENCOUNTER 2016-09-16 02:45 | Observation (INO) | payer OTHER ==
[~2016-09-16] VITALS: Ht 185.4 cm; Wt 68.0 kg
[2016-09-16 03:01] VITALS: BP 115/84
--- NOTE | 2016-09-16 03:08 | NUR ---
TO ER OF1
--- NOTE | 2016-09-16 03:08 | NUR ---
56 Y/O W/C/O ABD PAIN AND DIARRHEA X 1 WK. NO S/S OF DSITRESS NOTED AT THE MOMENT. VSS. RUBEN LISA MADE AWARE.
--- NOTE | 2016-09-16 03:15 | NUR ---
Patient being evaluated by physician at bedside.
[2016-09-16] MEDS ORDERED: NACL 0.9% 1,000 ML IV ONE (03:30)
[2016-09-16] MEDS ORDERED: fentaNYL 0.05 MG/ML VIAL IVP ONE (03:30)
--- NOTE | 2016-09-16 03:31 | NUR ---
MOVED TO ER BED 7
[2016-09-16 03:51] LABS: BASOPHILS # (AUTO) 0.1 K/uL (0.00-0.22); BASOPHILS % (AUTO) 0.9 % (0.0-2.0); EOSINOPHILS # (AUTO) 0.3 K/uL (0-0.4); EOSINOPHILS % (AUTO) 4.5 % (0.0-4.0); HEMATOCRIT 38.2 % (36-52); HEMOGLOBIN 12.5 g/dL (12.0-18.0); LYMPHOCYTES # (AUTO) 1.4 K/uL (2.0-11.5); LYMPHOCYTES % (AUTO) 24.1 % (20.5-51.1); MEAN CORPUSCULAR HEMOGLOBIN 31 pg (27-31); MEAN CORPUSCULAR HGB CONC 33 g/dL (33-37); MEAN CORPUSCULAR VOLUME 95 fL (80-94); MONOCYTES # (AUTO) 0.6 K/uL (0.8-1.0); MONOCYTES % (AUTO) 10.6 % (1.7-9.3); NEUTROPHILS # (AUTO) 3.6 K/uL (1.8-7.7); NEUTROPHILS % (AUTO) 59.9 % (42.2-75.2); PLATELET COUNT (AUTO) 243 K/uL (140-450); RED BLOOD CELL COUNT(AUTO) 4.03 MIL/uL (4.20-6.10); RED CELL DISTRIBUTION WIDTH 13.8 % (11.6-13.7)
[2016-09-16 04:08] LABS: ALBUMIN 3.7 g/dL (3.4-5.0); ANION GAP 11.8 (8-16); CREATININE 1.1 mg/dL (0.6-1.3); POTASSIUM 3.8 mmol/L (3.5-5.1); TOTAL BILIRUBIN 0.1 mg/dL (0.0-1.0); TOTAL PROTEIN, SERUM 6.9 g/dL (6.4-8.2)
[2016-09-16 04:10] LABS: INR 1.1 (0.8-1.2); PARTIAL THROMBOPLASTIN TIME 25.7 secs (22-35.6)
--- NOTE | 2016-09-16 04:12 | NUR ---
PT TAKEN FOR CT SCAN
--- NOTE | 2016-09-16 05:11 | NUR ---
PT RESTING IN BED AWATING FOR CT RESULSTS. NO S/S OF DISTRESS NOTED AT THIS MOMENT.
[2016-09-16] MEDS ORDERED: HYDROcodone/APAP 5/325 MG 1 TAB TAB PO PRN (05:40)
[2016-09-16] MEDS ORDERED: ZOLPIDEM 5 MG TAB PO PRN (05:40)
[2016-09-16] MEDS ORDERED: ALBUTEROL SULFATE/IPRATROPIU 3 ML SOL IH PRN ×2 (05:40→13:45)
[2016-09-16] MEDS ORDERED: ACETAMINOPHEN 325 MG TAB PO PRN (05:40)
[2016-09-16] MEDS: NACL 0.9% 1,000 ML IV SCH ×2 (05:40→20:24)
[2016-09-16] MEDS ORDERED: LORazepam 1 MG TAB PO PRN (05:40)
[2016-09-16] MEDS ORDERED: ONDANSETRON 4 MG/2 ML VIAL IVP PRN (05:40)
--- NOTE | 2016-09-16 05:46 | NUR ---
Patient will be admitted to care of DR SAGE. Admited to [facility]. Will go to room 107A. Belongings list completed. Report to JESI GUAJARDO.
--- NOTE | 2016-09-16 06:06 | NUR ---
PT TRASFERRED TO TELEMETRY, ROOM 107A VIA RISABELLA, SITE CONTROLLER IN BED. ACCOMPANIED BY TWO RNS. NO S/S OPF DISTRESS NOTED DURING TRASFER.
--- NOTE | 2016-09-16 06:22 | NUR ---
RECEIVED PATIENT TO UNIT, PATIENT ARRIVED VIA GURNEY, WAS ABLE TO AMBULATE TO BED. PATIENT IS AAOX4 ON ROOM AIR, NO SOB OR SIGN OF DISTRESS AT THIS TIME, VITAL SIGNS ARE STABLE BP 134/77 HR 84 O2 98% RR 16. PATIENT CONNECTED TO TELE MONITOR, ORIENTED TO ROOM AND CALL LIGHT, DISCUSSED PLAN OF CARE WITH PATIENT, PATIENT VERBALIZED UNDERSTANDING, CALL LIGHT WITHIN REACH.
[2016-09-16 06:57] LABS: FREE T4 (FREE THYROXINE) 1.14 ng/dL (0.76-1.46); MAGNESIUM 1.9 mg/dL (1.8-2.4)
[2016-09-16 06:58] LABS: THYROID STIMULATING HORMONE 0.34 uIU/mL (0.34-3.76)
[2016-09-16 07:09] LABS: CHOL/HDL RATIO 3.9 (1-4.5)
[2016-09-16] MEDS ORDERED: BUDESONIDE 0.25 MG/2 ML NEBU INH SCH (07:30)
--- NOTE | 2016-09-16 07:30 | NUR ---
ENDORSED PATIENT TO DAY RN AT BEDSIDE, PATIENT IN STABLE CONDITION
--- NOTE | 2016-09-16 07:31 | NUR ---
RECEIVED PT IN BED AWAKE, ALERT, ORIENTED X4. NO SOB NOTED. BREATHING EVEN AND UNLABORED. DENIES ANY PAIN OR DISCOMFORT AT THIS TIME. PT AMBULATORY. SAFETY PRECAUTION IN PLACE, CALL LIGHT WITHIN REACH.
[2016-09-16 08:00] VITALS: BP 136/85
[2016-09-16] MEDS: HYDROmorphone 1 MG/ML AMP IVP PRN ×5 (08:55→23:42)
[2016-09-16] MEDS ORDERED: PROPRANOLOL HCL 40 MG PO SCH (09:00)
[2016-09-16] MEDS: DOCUSATE SODIUM 100 MG GELCAP PO SCH ×2 (09:16→20:25)
[2016-09-16] MEDS: PROPRANOLOL 20 MG TAB PO SCH (09:16)
[2016-09-16] MEDS: GABAPENTIN 100 MG CAP PO SCH ×3 (09:16→17:36)
[2016-09-16] MEDS: amLODIPine 5 MG TAB PO SCH (09:17)
[2016-09-16 12:00] VITALS: BP 141/86
[2016-09-16] MEDS ORDERED: ALBUTEROL SULFATE/IPRATROPIU 3 ML SOL IH SCH (13:50)
[2016-09-16] MEDS: ALBUTEROL SULFATE/IPRATROPIU 3 ML SOL IH SCH ×2 (15:07→19:18)
--- NOTE | 2016-09-16 15:14 | NUR ---
15:14:11 EKG READING CONVERT FROM SR TO ATRIAL FLUTTER. ASSESSED PT. DENIES PAIN. ALERT, AWAKE, VITAL SIGNS FOLLOWS: BP 131/75, RR 17, ME 85, 02 SAT 98% ON ROOM AIR. THEN 15:14:42 EKG CONVERTED FROM ATRIAL FLUTTER TO SINUS BRADYCARDIA. PT ASYMPTOMATIC, ON STABLE CONDITION.
[2016-09-16 16:00] VITALS: BP 133/95
--- NOTE | 2016-09-16 17:59 | NUR ---
URINE SPECIMEN COLLECTED SENT TO LABS.
[2016-09-16 18:36] LABS: APPEARANCE,URINE CLEAR (CLEAR); BILIRUBIN,URINE NEGATIVE (NEGATIVE); BLOOD, URINE 1+ (NEGATIVE); COLOR,URINE YELLOW (YELLOW); LEUKOCYTE ESTERASE ,URINE NEGATIVE (NEGATIVE); NITRITE, URINE NEGATIVE (NEGATIVE); PROTEIN,URINE NEGATIVE (NEGATIVE); UGLUCOSE NEGATIVE (NEGATIVE); UROBILINOGEN,URINE 0.2 EU/dL (0.2 - 1)
[2016-09-16 18:42] LABS: AMPHETAMINE, URINE NEG. ng/ml (NEG <=1000); BARBITURATE, URINE NEG. ng/ml (NEG <=200); BENZODIAZEPINE, URINE NEG. ng/mL (NEG <=200); CANNABINOID, URINE NEG. ng/mL (NEG <=50); COCAINE, URINE NEG. ng/mL (NEG <=300); OPIATE, URINE NEG. ng/mL (NEG <=2000); PHENCYCLIDINE SCREEN,URINE NEG. ng/mL (NEG <=25)
[2016-09-16 18:44] LABS: WBC,URINE 0-5 (RARE) /HPF (0-5)
[2016-09-16 18:45] LABS: BACTERIA,URINE 0-2 (RARE) /HPF (None Seen); RBC,URINE 0-5 (RARE) /HPF (0-5); SQUAMOUS EPITHELIAL CELL,UR 0-3 (FEW) /LPF (0-3 (FEW))
[2016-09-16] MEDS: BUDESONIDE 0.5 MG/2 ML NEBU INH SCH (19:18)
--- NOTE | 2016-09-16 19:29 | NUR ---
ENDORSED PT TO UPCOMING SHIFT ON STABLE CONDITION.
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
[2016-09-16 20:00] VITALS: BP 127/90
--- NOTE | 2016-09-16 20:25 | NUR ---
DUE MEDICATION ADMINISTERED, TOLERATED WELL. PT C/O ABDOMINAL PAIN, MEDICATED PER MD ORDER. VS STABLE. CALL LIGHT WITHIN REACH.
--- NOTE | 2016-09-16 23:42 | NUR ---
VS TAKEN, STABLE. PT C/O ABDOMINAL PAIN, MEDICATED PER MD ORDER. WILL CONTINUE TO MONITOR.
[2016-09-17] VITALS: BP 134/81
--- NOTE | 2016-09-17 02:03 | NUR ---
PT IS SLEEPING. NO S/S OF DISTRESS OR DISCOMFORT NOTED. CALL LIGHT WITHIN REACH.
[2016-09-17] MEDS: NACL 0.9% 1,000 ML IV SCH (02:09)
[2016-09-17] MEDS: HYDROmorphone 1 MG/ML AMP IVP PRN ×4 (03:24→12:32)
--- NOTE | 2016-09-17 03:29 | NUR ---
ENDORSED PATIENT TO SCOTT RN FOR CONTINUITY OF CARE, PATIENT IS IN STABLE CONDITION.
--- NOTE | 2016-09-17 03:30 | NUR ---
RECEIVED REPORT FROM JESI HOUSER, PT AWAKE, JUST MEDICATED PRN FOR PAIN, WILL REASSESS LATER, IVF INFUSING WELL, DIET TOLERATING WELL, SAFETY MEASURES IN PLACE, INSTRUCTED TO COLLECT STOOL SPECIMEN, CONTAINER IN BR, NO BM YET, VERBALIZED UNDERSTANDING, SAFETY MEASURES IN PLACE, CALL LIGHT WITHIN REACH.
[2016-09-17 04:00] VITALS: BP 124/68
--- NOTE | 2016-09-17 05:36 | NUR ---
PT COMPLAINING OF SOB, PUT ON HIGH FOWLERS POSITION, RT ANDREE PAGED AND GAVE BREATHING TX PRN.
--- NOTE | 2016-09-17 06:05 | NUR ---
BP-134/84, HR-62, SAT-96%, MEDICATED PRN WITH DILAUDID FOR ABDOMINAL PAIN, MONITORED CLOSELY.
[2016-09-17 06:09] LABS: BASOPHILS # (AUTO) 0.1 K/uL (0.00-0.22); BASOPHILS % (AUTO) 3.2 % (0.0-2.0); EOSINOPHILS # (AUTO) 0.2 K/uL (0-0.4); EOSINOPHILS % (AUTO) 4.9 % (0.0-4.0); HEMATOCRIT 36.5 % (36-52); HEMOGLOBIN 12.1 g/dL (12.0-18.0); LYMPHOCYTES # (AUTO) 1.4 K/uL (2.0-11.5); LYMPHOCYTES % (AUTO) 35.9 % (20.5-51.1); MEAN CORPUSCULAR HEMOGLOBIN 31 pg (27-31); MEAN CORPUSCULAR HGB CONC 33 g/dL (33-37); MEAN CORPUSCULAR VOLUME 95 fL (80-94); MONOCYTES # (AUTO) 0.4 K/uL (0.8-1.0); MONOCYTES % (AUTO) 9.6 % (1.7-9.3); NEUTROPHILS # (AUTO) 1.8 K/uL (1.8-7.7); NEUTROPHILS % (AUTO) 46.4 % (42.2-75.2); PLATELET COUNT (AUTO) 194 K/uL (140-450); RED BLOOD CELL COUNT(AUTO) 3.86 MIL/uL (4.20-6.10); RED CELL DISTRIBUTION WIDTH 13.7 % (11.6-13.7); WHITE BLOOD COUNT (AUTO) 3.9 K/uL (4.8-10.8)
[2016-09-17 06:35] LABS: ANION GAP 11.1 (8-16); CALCIUM 8.4 mg/dL (8.5-10.1); CARBON DIOXIDE 26.7 mmol/L (21-32); CREATININE 0.8 mg/dL (0.6-1.3); POTASSIUM 3.8 mmol/L (3.5-5.1)
[2016-09-17] MEDS: ALBUTEROL SULFATE/IPRATROPIU 3 ML SOL IH SCH ×2 (06:53→11:05)
[2016-09-17] MEDS: BUDESONIDE 0.5 MG/2 ML NEBU INH SCH (07:02)
[2016-09-17 07:13] LABS: MAGNESIUM 1.7 mg/dL (1.8-2.4); PHOSPHORUS 3.3 mg/dL (2.5-4.9)
--- NOTE | 2016-09-17 07:15 | NUR ---
RECEIVED PATIENT REPORT. PATIENT AWAKE, ALERT, ORIENTED AND AMBULATORY. NO S/S OF DISTRESS NOTED. IV LINE NOTED TO THE RIGHT HAND WITH IVF INFUSING WELL. PATIENT ON TELE MONITORING. BED LOWERED WITH CALL LIGHT WITHIN REACH. WILL CONTINUE TO MONITOR
--- NOTE | 2016-09-17 07:35 | NUR ---
PT AWAKE, NO SIGNS OF DISTRESS, REPORT GIVEN TO JESI RIVERO FOR CONTINUITY OF CARE.
--- NOTE | 2016-09-17 07:53 | NUR ---
PATIENT HAS BEEN SCREENED AND CATEGORIZED HIGH NUTRITION RISK. PATIENT WILL BE SEEN WITHIN 1-2 DAYS OF ADMISSION. 09/17/16-09/18/[address] Addendum: 09/17/16 at [address] DATE CORRECTION: 09/16/16-09/17/[address]
[2016-09-17 08:00] VITALS: BP 157/94
[2016-09-17 09:10] LABS: T4 (THYROXINE) 8.1 ug/dL (4.5-12.0)
[2016-09-17] MEDS: DOCUSATE SODIUM 100 MG GELCAP PO SCH (09:16)
[2016-09-17] MEDS: amLODIPine 5 MG TAB PO SCH (09:17)
[2016-09-17] MEDS: GABAPENTIN 100 MG CAP PO SCH ×2 (09:17→12:32)
[2016-09-17] MEDS: PROPRANOLOL 20 MG TAB PO SCH (09:17)
[2016-09-17] MEDS ORDERED: MAG SULF 2000 MG/WATER PREMIX 50 ML IV SCH (09:30)
--- NOTE | 2016-09-17 09:30 | NUR ---
PATIENT COMFORTABLY RESTING IN BED, WATCHING TELEVISION. NO S/S OF DISTRESS NOTED
[2016-09-17 12:00] VITALS: BP 134/66
[2016-09-17] MEDS ORDERED: ACET-2858 PO (12:16)
[2016-09-17] MEDS ORDERED: BISA5TAB79 PO (12:16)
[2016-09-17] MEDS ORDERED: HYDROcodone/APAP 10/325 MG 1 TAB TAB PO SCH (12:20)
[2016-09-17 12:28] LABS: HEMOGLOBIN A1C 5.5 % (4.8-5.6)
--- NOTE | 2016-09-17 13:41 | NUR ---
PATIENT DISCHARGED TO HOME. DISCHARGE INSTRUCTIONS AND DISCHARGE PRESCRIPTIONS GIVEN. PATIENT VERBALIZED UNDERSTANDING. IV LINE DISCONTINUED. TELE LEADS TAKEN OFF. PATIENT LEFT WITH ALL HIS BELONGINGS AND DISCHARGE PAPERS. PATIENT LEFT IN STABLE CONDITION
== END 2016-09-17 13:40 | disposition home or self-care (01) ==
LOC: MED 02:45 → MTU 05:40
PROVIDERS: ADMIT Student in an Organized Health Care Education/Training Program; ATTEND Student in an Organized Health Care Education/Training Program
DX: R10.9 Unspecified abdominal pain (principal); E87.0 Hyperosmolality and hypernatremia; E87.8 Other disorders of electrolyte and fluid balance, not elsewhere classified; J44.9 Chronic obstructive pulmonary disease, unspecified; I10 Essential (primary) hypertension; G62.9 Polyneuropathy, unspecified
CPT/HCPCS: 36415; 71010; 74176; 80048; 80053; 80061; 80305; 81001; 82150; 83036; 83690; 83735; 83880; 84100; 84436; 84439; 84443; 84479; 85025; 85610; 85730; 87081; 94640; 94760; 96361; 96365; 96366; 96375; 96376; 99285; G0378; J1170; J3010; J3475; J7030; J7620; J7626; Q0092; 93005; 96374

== ENCOUNTER 2016-09-23 10:25 | Emergency (ER) | payer OTHER ==
[~2016-09-23] VITALS: Ht 182.9 cm; Wt 65.8 kg
[~2016-09-23 10:25] MED LIST changes: +ADVAIR DISKUS 21 DSK IH; -ALBU0.0912 IH; -ALBU0.0952 IH; -AMLO10TA PO; +AMOXICILLIN500 MG PO; +COLACE100 M1 PO; +COZAAR50 MG PO; -DOCU-67 PO; +DULCOLAX PO; +FLOMAX0.4 MG PO; -FLUT1DSK2 IH; -GABA-636 PO; +GABAPENTIN100 M1 PO; +HTN MED?; -HYDR-4452 PO; +LEVAQUIN500 MG PO; +LOSARTAN POTAS100 MG PO; +LYRICA50 MG PO; +MS-CONTIN15 MG PO; +NAPROSYN500 MG PO; +NEURONTIN300 MG PO; +NORCO 10-325 T1 EACH PO; +NORCO 10/325 MG1 TAB PO; +NORCO 325 MG-7.1 TAB PO; +NORCO 5/325 MG1 TAB PO; +NORVASC10 MG PO; +NORVASC5 M1 PO; +OXYCODONE HCL5 M1 PO; -PROP40TA29 PO; +PROPRANOLOL HCL40 M1 PO; +PROPRANOLOL HCL40 MG PO; +PROVENTIL0.09 MG/A1 IH; +ROCEPHIN1 G1 IV; +SOMA350 MG PO; -SPIMDI INH; +SPIRIVA MD18 MCG/CAP INH; +TYLENOL #3 300/1 TAB PO; +VENTOLIN H0.09 MG/Ac IH; +VICODIN 5/500 M1 TAB PO; +[UNRECOGNIZED DRUG - REMARK]; +[UNRECOGNIZED DRUG - REMARK]
[2016-09-23 10:58] VITALS: BP 140/99
--- NOTE | 2016-09-23 20:10 | NUR ---
PATIENT LEFT WITHOUT BEING SEEN BY DR. DE JESUS. NO FURTHER CARE PROVIDED FOR PATIENT.
== END 2016-09-23 20:10 | disposition left against medical advice (07) ==
LOC: MED 10:25
DX: R31.9 Hematuria, unspecified (principal); Z53.21 Procedure and treatment not carried out due to patient leaving prior to being seen by health care provider

== ENCOUNTER 2016-09-24 14:35 | Emergency (ER) | payer OTHER ==
--- NOTE | 2016-09-24 15:51 | NUR ---
PATIENT LEFT WITHOUT BEING SEEN BY DR. CAVAZOS. NO FURTHER CARE PROVIDED FOR PATIENT.
== END 2016-09-24 15:51 | disposition left against medical advice (07) ==
LOC: MED 14:35
DX: R52 Pain, unspecified (principal); Z53.21 Procedure and treatment not carried out due to patient leaving prior to being seen by health care provider

== ENCOUNTER 2016-09-25 15:06 | Emergency (ER) | payer OTHER ==
[~2016-09-25] VITALS: Ht 182.9 cm; Wt 68.0 kg
[~2016-09-25 15:06] MED LIST changes: +ACET-2858 PO; -ADVAIR DISKUS 21 DSK IH; +ALBU0.0912 IH; +ALBU0.0952 IH; +AMLO10TA PO; -AMOXICILLIN500 MG PO; +BISA5TAB79 PO; -COLACE100 M1 PO; -COZAAR50 MG PO; +DOCU-67 PO; -DULCOLAX PO; -FLOMAX0.4 MG PO; +FLUT1DSK2 IH; +GABA-636 PO; -GABAPENTIN100 M1 PO; -HTN MED?; +HYDR-4452 PO; -LEVAQUIN500 MG PO; -LOSARTAN POTAS100 MG PO; -LYRICA50 MG PO; -MS-CONTIN15 MG PO; -NAPROSYN500 MG PO; -NEURONTIN300 MG PO; -NORCO 10-325 T1 EACH PO; -NORCO 10/325 MG1 TAB PO; -NORCO 325 MG-7.1 TAB PO; -NORCO 5/325 MG1 TAB PO; -NORVASC10 MG PO; -NORVASC5 M1 PO; -OXYCODONE HCL5 M1 PO; +PROP40TA29 PO; -PROPRANOLOL HCL40 M1 PO; -PROPRANOLOL HCL40 MG PO; -PROVENTIL0.09 MG/A1 IH; -ROCEPHIN1 G1 IV; -SOMA350 MG PO; +SPIMDI INH; -SPIRIVA MD18 MCG/CAP INH; -TYLENOL #3 300/1 TAB PO; -VENTOLIN H0.09 MG/Ac IH; -VICODIN 5/500 M1 TAB PO; -[UNRECOGNIZED DRUG - REMARK]; -[UNRECOGNIZED DRUG - REMARK]
[2016-09-25 15:10] VITALS: BP 163/102
--- NOTE | 2016-09-25 17:33 | NUR ---
Patient ambulated to bed 08.
[2016-09-25] MEDS ORDERED: PHENAZOPYRIDINE 100 MG TAB PO ONE (18:00)
--- NOTE | 2016-09-25 18:08 | NUR ---
Dr. Kent evaluating patient at bedside.
--- NOTE | 2016-09-25 18:09 | NUR ---
Patient being evaluated by physician at bedside.
--- NOTE | 2016-09-25 18:25 | NUR ---
Patient being evaluated by physician at bedside.
[2016-09-25] MEDS ORDERED: ACETAMINOPHEN EXTRA STRENGTH 500 MG TAB PO ONE (18:30)
[2016-09-25] MEDS ORDERED: traMADol 50 MG TAB PO ONE (18:30)
--- NOTE | 2016-09-25 18:48 | NUR ---
Patient discharged with v/s stable. Written and verbal after care instructions given and explained. Patient alert, oriented and verbalized understanding of instructions. Ambulatory with steady gait. All questions addressed prior to discharge. ID band removed. Patient advised to follow up with PMD. Rx of ZOFRAN, ULTRAM, PHENAZOPYRIDINE HYDROCHLORIDE given. Patient educated on indication of medication including possible reaction and side effects. Opportunity to ask questions provided and answered.
[2016-09-25 18:49] VITALS: BP 123/88
[2016-09-27 06:16] LABS: CHLAMYDIA TRACHOMATIS AMP DNA Negative (Negative)
== END 2016-09-25 18:48 | disposition home or self-care (01) ==
LOC: MED 15:06
DX: N20.0 Calculus of kidney (principal); R31.9 Hematuria, unspecified; N48.89 Other specified disorders of penis; J44.9 Chronic obstructive pulmonary disease, unspecified; I10 Essential (primary) hypertension; Z88.5 Allergy status to narcotic agent; Z88.6 Allergy status to analgesic agent
CPT/HCPCS: 36415; 81002; 87491; 99284

== ENCOUNTER 2016-12-23 09:17 | Emergency (ER) | payer MEDICARE, OTHER ==
[~2016-12-23] VITALS: Ht 180.3 cm; Wt 72.3 kg
[~2016-12-23 09:17] MED LIST changes: -HYDR-4452 PO
[2016-12-23 09:20] VITALS: BP 135/104
--- NOTE | 2016-12-23 09:27 | NUR ---
Patient ambulated to bed 5 at this time.
--- NOTE | 2016-12-23 09:30 | NUR ---
PATIENT PRESENTS TO ED WITH c/o occipital headache x 2 wks----denies n/v or injury hx----spondylosis, kidney stones, htn, copd rx-----gabapentin, propanalol, amlodipine; DENIES N/V/D; SKIN IS PINK/WARM/DRY; AAOX4 WITH EVEN AND STEADY GAIT; LUNGS CLEAR BL; HR EVEN AND REGULAR; PT DENIES ANY FEVER, CP, SOB, OR COUGH AT THIS TIME; PATIENT STATES PAIN OF 7/10 AT THIS TIME; VSS; PATIENT POSITIONED FOR COMFORT; HOB ELEVATED; BEDRAILS UP X2; BED DOWN. ER MD MADE AWARE OF PT STATUS.
[2016-12-23] MEDS ORDERED: fentaNYL 0.05 MG/ML VIAL IM ONE (10:00)
[2016-12-23 10:17] VITALS: BP 129/80
--- NOTE | 2016-12-23 10:17 | NUR ---
Patient discharged with v/s stable. Written and verbal after care instructions given and explained. Patient alert, oriented and verbalized understanding of instructions. Ambulatory with to car. All questions addressed prior to discharge. ID band removed. Patient advised to follow up with PMD. Rx of NORCO given. Patient educated on indication of medication including possible reaction and side effects. Opportunity to ask questions provided and answered.
== END 2016-12-23 10:17 | disposition home or self-care (01) ==
LOC: MED 09:17
DX: R51 Headache (principal); J44.9 Chronic obstructive pulmonary disease, unspecified; I10 Essential (primary) hypertension; F17.210 Nicotine dependence, cigarettes, uncomplicated; Z88.5 Allergy status to narcotic agent; Z88.3 Allergy status to other anti-infective agents
CPT/HCPCS: 96372; 99283; J3010

== ENCOUNTER 2017-03-12 17:07 | Emergency (ER) | payer MEDICARE, OTHER ==
[~2017-03-12] VITALS: Ht 182.9 cm; Wt 72.6 kg
[~2017-03-12 17:07] MED LIST changes: -ACET-2858 PO; -BISA5TAB79 PO; -DOCU-67 PO; -GABA-636 PO; +GABA400C PO
[2017-03-12 17:15] VITALS: BP 148/115
--- NOTE | 2017-03-12 18:48 | NUR ---
Patient ambulated to bed 06.
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
--- NOTE | 2017-03-12 19:13 | NUR ---
Pt report given to JESI JASON and JESI Conti. Transfer of care at this time.
--- NOTE | 2017-03-12 19:29 | NUR ---
Dr. Parkinson evaluating patient at bedside.
[2017-03-12] MEDS ORDERED: HYDROmorphone 1 MG/ML AMP IM ONE (19:35)
[2017-03-12] MEDS ORDERED: ALBUTEROL SULFATE/IPRATROPIU 3 ML SOL IH ONE (19:35)
[2017-03-12] MEDS ORDERED: diphenhydrAMINE 50 MG/ML VIAL IM ONE (19:35)
--- NOTE | 2017-03-12 19:40 | NUR ---
Respiratory Therapist at bedside for respiratory intervention.
[2017-03-12 20:18] VITALS: BP 136/91
--- NOTE | 2017-03-12 20:18 | NUR ---
Patient discharged with v/s stable. Written and verbal after care instructions given and explained. Patient alert, oriented and verbalized understanding of instructions. Ambulatory with steady gait. All questions addressed prior to discharge. ID band removed. Patient advised to follow up with PMD. Rx of BENADRYL TOP CREAM, NORCO 10/325MG, AND PREDNISONE 50MG given. Patient educated on indication of medication including possible reaction and side effects. Opportunity to ask questions provided and answered.
== END 2017-03-12 20:18 | disposition home or self-care (01) ==
LOC: MED 17:07
DX: S20.20XA Contusion of thorax, unspecified, initial encounter (principal); I10 Essential (primary) hypertension; J44.9 Chronic obstructive pulmonary disease, unspecified; Z79.899 Other long term (current) drug therapy; Z88.5 Allergy status to narcotic agent; X58.XXXA Exposure to other specified factors, initial encounter; Y93.89 Activity, other specified; Y92.89 Other specified places as the place of occurrence of the external cause; Y99.8 Other external cause status
CPT/HCPCS: 71101; 94640; 96372; 99284; J1170; J1200; J7620

== ENCOUNTER 2017-06-05 14:53 | Emergency (ER) | payer OTHER ==
[~2017-06-05] VITALS: Ht 177.8 cm; Wt 74.4 kg
[2017-06-05 15:06] VITALS: BP 163/109
--- NOTE | 2017-06-05 19:40 | NUR ---
PATIENT LEFT WITHOUT BEING SEEN BY DR. LÓPEZ. NO FURTHER CARE PROVIDED FOR PATIENT.
== END 2017-06-05 19:40 | disposition left against medical advice (07) ==
LOC: MED 14:53
DX: R20.8 Other disturbances of skin sensation (principal); Z53.21 Procedure and treatment not carried out due to patient leaving prior to being seen by health care provider

== ENCOUNTER 2017-06-07 00:46 | Emergency (ER) | payer OTHER ==
[~2017-06-07] VITALS: Ht 185.4 cm; Wt 74.8 kg
[2017-06-07 00:55] VITALS: BP 134/90
--- NOTE | 2017-06-07 00:58 | NUR ---
TO LOBBY, JANA KANG, A/W BED ERMD NOTED
--- NOTE | 2017-06-07 01:28 | NUR ---
PT TAKEN TO BED 3
--- NOTE | 2017-06-07 02:15 | NUR ---
56/M c/o lower abd pain x1 month accompanied by N/V/D. Patient AOX4, ambulatory with steady gait. VSS.
--- NOTE | 2017-06-07 02:22 | NUR ---
Patient being evaluated by Dr. Parkinson at bedside.
[2017-06-07] MEDS ORDERED: traMADol 50 MG TAB PO ONE (02:25)
[2017-06-07] MEDS ORDERED: ONDANSETRON 4 MG ODT PO ONE (02:25)
--- NOTE | 2017-06-07 02:47 | NUR ---
Patient returned from CT and placed in bed 3.
[2017-06-07 03:54] VITALS: BP 134/90
--- NOTE | 2017-06-07 03:54 | NUR ---
Patient discharged with v/s stable. Written and verbal after care instructions given and explained. Patient alert, oriented and verbalized understanding of instructions. Ambulatory with steady gait. All questions addressed prior to discharge. ID band removed. Patient advised to follow up with PMD. Rx of Tramadol and Zofran ODT given. Patient educated on indication of medication including possible reaction and side effects. Opportunity to ask questions provided and answered.
== END 2017-06-07 03:54 | disposition home or self-care (01) ==
LOC: MED 00:46
DX: A08.4 Viral intestinal infection, unspecified (principal); K57.90 Diverticulosis of intestine, part unspecified, without perforation or abscess without bleeding; J44.9 Chronic obstructive pulmonary disease, unspecified; I10 Essential (primary) hypertension; Z88.5 Allergy status to narcotic agent; Z88.6 Allergy status to analgesic agent
CPT/HCPCS: 74176; 99284; S0119

== ENCOUNTER 2017-07-13 14:03 | Emergency (ER) | payer OTHER ==
[~2017-07-13] VITALS: Ht 182.9 cm; Wt 74.4 kg
[2017-07-13 14:07] VITALS: BP 150/104
--- NOTE | 2017-07-13 14:10 | NUR ---
DR. SONG EVALUATING PATIENT IN TRIAGE.
--- NOTE | 2017-07-13 14:39 | NUR ---
PATIENT CALLED FROM LOBBY NO ANSWER PATIENT IS LWBS.
== END 2017-07-13 14:36 | disposition left against medical advice (07) ==
LOC: MED 14:03
DX: R10.9 Unspecified abdominal pain (principal); J44.9 Chronic obstructive pulmonary disease, unspecified; I10 Essential (primary) hypertension; Z90.49 Acquired absence of other specified parts of digestive tract; Z88.5 Allergy status to narcotic agent; Z88.8 Allergy status to other drugs, medicaments and biological substances; Z79.899 Other long term (current) drug therapy
CPT/HCPCS: 99281

== ENCOUNTER 2017-08-02 20:20 | Emergency (ER) | payer OTHER ==
[~2017-08-02] VITALS: Ht 182.9 cm; Wt 72.6 kg
[2017-08-02 20:30] VITALS: BP 150/91
--- NOTE | 2017-08-02 20:30 | NUR ---
ER MD DR GIANG MADE AWARE. TO SEE PT.
--- NOTE | 2017-08-02 20:30 | NUR ---
PT SITTING IN PHLEB CHAIR IN ER. AWAITING TO BE EVAL BY DR FRY
--- NOTE | 2017-08-02 21:00 | NUR ---
PT EVAL BY RUBEN FRY, PT AAOX4
--- NOTE | 2017-08-02 21:10 | NUR ---
PATIENT AMBULATED TO ER CHAIR C.
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
[2017-08-02] MEDS ORDERED: ACETAMINOPHEN EXTRA STRENGTH 500 MG TAB PO ONE (21:30)
[2017-08-02] MEDS ORDERED: diphenhydrAMINE 50 MG/ML VIAL IM ONE (21:30)
[2017-08-02 21:48] VITALS: BP 145/89
--- NOTE | 2017-08-02 21:48 | NUR ---
Patient discharged with v/s stable. Written and verbal after care instructions given and explained. Patient alert, oriented and verbalized understanding of instructions. Ambulatory with steady gait. All questions addressed prior to discharge. ID band removed. Patient advised to follow up with PMD. Rx of PERCOGESIC 500MG-12.5MG QID/PRN given. Patient educated on indication of medication including possible reaction and side effects. Opportunity to ask questions provided and answered.
== END 2017-08-02 21:48 | disposition home or self-care (01) ==
LOC: MED 20:20
DX: G89.29 Other chronic pain (principal); M54.9 Dorsalgia, unspecified; J44.9 Chronic obstructive pulmonary disease, unspecified; I10 Essential (primary) hypertension; Z88.5 Allergy status to narcotic agent; Z88.6 Allergy status to analgesic agent
CPT/HCPCS: 99283

== ENCOUNTER 2017-08-06 18:00 | Emergency (ER) | payer OTHER ==
[~2017-08-06] VITALS: Ht 182.9 cm; Wt 75.4 kg
[2017-08-06 18:15] VITALS: BP 169/109
--- NOTE | 2017-08-06 18:30 | NUR ---
PATIENT EVALUATED AND DISCHARGED BY DR CARTER
[2017-08-06 18:47] VITALS: BP 169/109
== END 2017-08-06 18:30 | disposition home or self-care (01) ==
LOC: MED 18:00
DX: M54.2 Cervicalgia (principal); F19.10 Other psychoactive substance abuse, uncomplicated; Z76.5 Malingerer [conscious simulation]; J44.9 Chronic obstructive pulmonary disease, unspecified; I10 Essential (primary) hypertension; Z79.899 Other long term (current) drug therapy; Z88.5 Allergy status to narcotic agent; Z88.8 Allergy status to other drugs, medicaments and biological substances
CPT/HCPCS: 99281

== ENCOUNTER 2017-09-08 13:40 | Emergency (ER) | payer OTHER ==
[~2017-09-08] VITALS: Ht 182.9 cm; Wt 73.0 kg
[2017-09-08 14:48] VITALS: BP 135/98
--- NOTE | 2017-09-08 15:03 | NUR ---
EKG GIVEN TO DR DOYLE, PT AMBULATES TO CHAIR D FOR NOW UNTIL AVAILABLE BED
--- NOTE | 2017-09-08 15:13 | NUR ---
Note humble in ED - 09/08/17 at 1658 by MEDCAROLINE Patient discharged with v/s stable. Written and verbal after care instructions given and explained. Patient verbalized understanding. Ambulatory with steady gait. All questions addressed prior to discharge. Advised to follow up with PMD.
--- NOTE | 2017-09-08 15:13 | NUR ---
Patient being evaluated by physician at bedside.
--- NOTE | 2017-09-08 15:17 | NUR ---
57Y/M C/O SOB, CP, SANDHU X 2 DAYS WITH SLIGHT DIZZINESS. HX; COPD, HTN. RX; NEURONTIN, VENTOLIN, ADVAIR, SPIRIVA, PROPANOLOL. PATIENT STATES PAIN OF 8/10 AT THIS TIME; PATIENT POSITIONED FOR COMFORT; ER MD MADE AWARE OF PT STATUS.
[2017-09-08] MEDS ORDERED: HYDROmorphone PFS 2 MG/ML SYR ONE (15:38)
[2017-09-08 16:10] LABS: BASOPHILS % (AUTO) 0.5 % (0.0-2.0); EOSINOPHILS # (AUTO) 0.1 K/uL (0-0.4); EOSINOPHILS % (AUTO) 1.7 % (0.0-4.0); HEMATOCRIT 50.4 % (36-52); HEMOGLOBIN 16.8 g/dL (12.0-18.0); LYMPHOCYTES # (AUTO) 1.3 K/uL (2.0-11.5); LYMPHOCYTES % (AUTO) 17.1 % (20.5-51.1); MEAN CORPUSCULAR HEMOGLOBIN 34 pg (27-31); MEAN CORPUSCULAR HGB CONC 33 g/dL (33-37); MEAN CORPUSCULAR VOLUME 100.9 fL (80-94); MONOCYTES # (AUTO) 0.7 K/uL (0.8-1.0); MONOCYTES % (AUTO) 8.4 % (1.7-9.3); NEUTROPHILS # (AUTO) 5.7 K/uL (1.8-7.7); NEUTROPHILS % (AUTO) 72.3 % (42.2-75.2); PLATELET COUNT (AUTO) 214 K/uL (140-450); RED BLOOD CELL COUNT(AUTO) 4.99 MIL/uL (4.20-6.10); RED CELL DISTRIBUTION WIDTH 13.9 % (11.6-13.7); WHITE BLOOD COUNT (AUTO) 7.9 K/uL (4.8-10.8)
[2017-09-08 16:28] LABS: ALBUMIN 3.7 g/dL (3.4-5.0); ANION GAP 15.3 (8-16); CARBON DIOXIDE 25.9 mmol/L (21-32); POTASSIUM 4.2 mmol/L (3.5-5.1); TOTAL BILIRUBIN 0.7 mg/dL (0.0-1.0)
[2017-09-08] MEDS ORDERED: HYDROmorphone PFS 2 MG/ML SYR IM ONE (16:35)
[2017-09-08] MEDS ORDERED: DEXAMETHASONE 10 MG/ML VIAL IM ONE (16:40)
[2017-09-08 16:56] VITALS: BP 133/97
--- NOTE | 2017-09-08 16:56 | NUR ---
Patient discharged with v/s stable. Written and verbal after care instructions given and explained. Patient verbalized understanding. Ambulatory with steady gait. All questions addressed prior to discharge. Advised to follow up with PMD.
== END 2017-09-08 16:56 | disposition home or self-care (01) ==
LOC: MED 13:40
DX: R07.89 Other chest pain (principal); R06.02 Shortness of breath; Z79.899 Other long term (current) drug therapy
CPT/HCPCS: 36415; 71046; 80053; 84484; 85025; 96372; 99285; J1100; J1170; 93005

== ENCOUNTER 2017-10-19 18:24 | Emergency (ER) | payer OTHER ==
[~2017-10-19] VITALS: Ht 182.9 cm; Wt 72.6 kg
[2017-10-19 18:39] VITALS: BP 148/91
[2017-10-19] MEDS: ALBUTEROL SULFATE/IPRATROPIU 3 ML SOL IH ONE (20:10)
[2017-10-19] MEDS: ACETAMINOPHEN EXTRA STRENGTH 500 MG TAB PO ONE (20:13)
[2017-10-19 20:25] VITALS: BP 131/76
== END 2017-10-19 20:21 | disposition home or self-care (01) ==
LOC: MED 18:24
DX: R51 Headache (principal); J44.9 Chronic obstructive pulmonary disease, unspecified; I10 Essential (primary) hypertension; F17.210 Nicotine dependence, cigarettes, uncomplicated; Z79.899 Other long term (current) drug therapy; Z88.5 Allergy status to narcotic agent; Z88.8 Allergy status to other drugs, medicaments and biological substances
CPT/HCPCS: 94640; 99283; J7620

== ENCOUNTER 2017-11-01 01:52 | Emergency (ER) | payer OTHER ==
[~2017-11-01] VITALS: Ht 182.9 cm; Wt 72.6 kg
[2017-11-01 01:57] VITALS: BP 125/84
--- NOTE | 2017-11-01 02:07 | NUR ---
PT AMBULATED TO ER BED 04
--- NOTE | 2017-11-01 02:30 | NUR ---
PATIENT PRESENTS TO ED WITH FLANK PAIN X3 DAYS. PT STATES HE HAS KIDNEY STONES. PATIENT DENIES N/V/D; SKIN IS PINK/WARM/DRY; AAOX4 WITH EVEN AND STEADY GAIT; LUNGS CLEAR BL; HR EVEN AND REGULAR; PT DENIES ANY FEVER, CP, SOB, OR COUGH AT THIS TIME; PATIENT STATES PAIN OF 8/10 AT THIS TIME; VSS; PATIENT POSITIONED FOR COMFORT; HOB ELEVATED; BEDRAILS UP X1; BED DOWN. ER MD MADE AWARE OF PT STATUS.
[2017-11-01] MEDS ORDERED: fentaNYL 0.05 MG/ML VIAL IM ONE (03:15)
--- NOTE | 2017-11-01 03:53 | NUR ---
Patient discharged with v/s stable. Written and verbal after care instructions given and explained. Patient alert, oriented and verbalized understanding of instructions. Ambulatory with steady gait. All questions addressed prior to discharge. ID band removed. Patient advised to follow up with PMD. Rx of TRAMADOL, SENOKOT given. Patient educated on indication of medication including possible reaction and side effects. Opportunity to ask questions provided and answered.
[2017-11-01 03:54] VITALS: BP 125/84
== END 2017-11-01 03:53 | disposition home or self-care (01) ==
LOC: MED 01:52
DX: K59.00 Constipation, unspecified (principal); J44.9 Chronic obstructive pulmonary disease, unspecified; I10 Essential (primary) hypertension; Z79.899 Other long term (current) drug therapy; Z88.5 Allergy status to narcotic agent; Z88.8 Allergy status to other drugs, medicaments and biological substances
CPT/HCPCS: 74176; 96372; 99284; J3010

== ENCOUNTER 2017-11-04 18:16 | Emergency (ER) | payer OTHER ==
[~2017-11-04] VITALS: Ht 182.9 cm; Wt 72.6 kg
[2017-11-04 18:26] VITALS: BP 116/87
--- NOTE | 2017-11-04 18:31 | NUR ---
PT WHEELED TO BED 3
--- NOTE | 2017-11-04 18:44 | NUR ---
XRAY AT BED SIDE
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
--- NOTE | 2017-11-04 18:56 | NUR ---
Patient being evaluated by physician at bedside.
[2017-11-04] MEDS ORDERED: IBUPROFEN 600 MG TAB PO ONE (19:00)
[2017-11-04] MEDS ORDERED: HYDROcodone/APAP 5/325 MG 1 TAB TAB PO ONE (19:00)
[2017-11-04] MEDS ORDERED: ACETAMINOPHEN EXTRA STRENGTH 500 MG TAB PO ONE (19:05)
--- NOTE | 2017-11-04 19:20 | NUR ---
REPORT GIVEN TO DEBBIE DENNISON FOR CONTINUITY OF CARE
[2017-11-04 19:44] VITALS: BP 141/103
== END 2017-11-04 19:45 | disposition home or self-care (01) ==
LOC: MED 18:16
DX: S93.602A Unspecified sprain of left foot, initial encounter (principal); J44.9 Chronic obstructive pulmonary disease, unspecified; I10 Essential (primary) hypertension; Z79.899 Other long term (current) drug therapy; Z88.5 Allergy status to narcotic agent; Z88.8 Allergy status to other drugs, medicaments and biological substances; W01.0XXA Fall on same level from slipping, tripping and stumbling without subsequent striking against object, initial encounter; Y93.01 Activity, walking, marching and hiking; Y92.89 Other specified places as the place of occurrence of the external cause; Y99.8 Other external cause status
CPT/HCPCS: 73630; 99284; Q0092

== ENCOUNTER 2017-11-27 00:15 | Emergency (ER) | payer OTHER ==
[~2017-11-27] VITALS: Ht 182.9 cm; Wt 74.8 kg
[2017-11-27 00:19] VITALS: BP 158/90
--- NOTE | 2017-11-27 00:22 | NUR ---
TO BED # 6 AMB, REPORT GIVEN TO PANKAJ DENNISON.
--- NOTE | 2017-11-27 00:24 | NUR ---
PT AMBULATED TO BED 8
[2017-11-27] MEDS ORDERED: ACETAMINOPHEN EXTRA STRENGTH 500 MG TAB PO ONE (00:25)
--- NOTE | 2017-11-27 00:36 | NUR ---
PATIENT PRESENTS TO ED WITH RT FLANK PAIN, NAUSEA, FOR 2 DAYS PT SKIN IS PINK/WARM/DRY; AAOX4 WITH EVEN AND STEADY GAIT; LUNGS CLEAR BL; HR EVEN AND REGULAR; PT DENIES ANY FEVER, CP, SOB, OR COUGH AT THIS TIME; PATIENT STATES PAIN OF 8/10 AT THIS TIME; VSS; PATIENT POSITIONED FOR COMFORT; HOB ELEVATED; BEDRAILS UP X2; BED DOWN. ER MD MADE AWARE OF PT STATUS.
--- NOTE | 2017-11-27 00:38 | NUR ---
Dr. Denis evaluating patient at bedside.
[2017-11-27 00:47] LABS: APPEARANCE,URINE CLEAR (CLEAR); BILIRUBIN,URINE NEGATIVE (NEGATIVE); BLOOD, URINE 1+ (NEGATIVE); COLOR,URINE YELLOW (YELLOW); LEUKOCYTE ESTERASE ,URINE NEGATIVE (NEGATIVE); NITRITE, URINE NEGATIVE (NEGATIVE); PH,URINE 5.5 (5.0-9.0); UGLUCOSE NEGATIVE (NEGATIVE)
[2017-11-27 00:48] LABS: BASOPHILS % (AUTO) 0.3 % (0.0-2.0); EOSINOPHILS # (AUTO) 0.4 K/uL (0-0.4); EOSINOPHILS % (AUTO) 6.2 % (0.0-4.0); LYMPHOCYTES # (AUTO) 1.6 K/uL (2.0-11.5); LYMPHOCYTES % (AUTO) 27.6 % (20.5-51.1); MEAN CORPUSCULAR HEMOGLOBIN 34 pg (27-31); MEAN CORPUSCULAR HGB CONC 34 g/dL (33-37); MEAN CORPUSCULAR VOLUME 100.8 fL (80-94); MONOCYTES # (AUTO) 0.7 K/uL (0.8-1.0); MONOCYTES % (AUTO) 11.9 % (1.7-9.3); NEUTROPHILS # (AUTO) 3.1 K/uL (1.8-7.7); PLATELET COUNT (AUTO) 151 K/uL (140-450); RED BLOOD CELL COUNT(AUTO) 4.66 MIL/uL (4.20-6.10); RED CELL DISTRIBUTION WIDTH 13.3 % (11.6-13.7); WHITE BLOOD COUNT (AUTO) 5.8 K/uL (4.8-10.8)
[2017-11-27 00:57] LABS: ANION GAP 13.7 (8-16); CARBON DIOXIDE 25.3 mmol/L (21-32)
[2017-11-27 00:58] LABS: RBC,URINE 0-5 (RARE) /HPF (0-5); WBC,URINE 0-5 (RARE) /HPF (0-5)
[2017-11-27 01:03] LABS: ALBUMIN 4.1 g/dL (3.4-5.0)
--- NOTE | 2017-11-27 01:09 | NUR ---
Ultrasound at bedside.
--- NOTE | 2017-11-27 01:45 | NUR ---
Ultrasound at bedside for 2nd time
--- NOTE | 2017-11-27 02:00 | NUR ---
AWAITING DR. FRY DISCHARGE DISPOSITION. PT IN BED POSITIONED FOR COMFORT. VSS. CONTINUE TO MONITOR.
[2017-11-27 02:40] VITALS: BP 158/90
== END 2017-11-27 02:40 | disposition home or self-care (01) ==
LOC: MED 00:15
DX: K76.0 Fatty (change of) liver, not elsewhere classified (principal); R79.89 Other specified abnormal findings of blood chemistry; G89.29 Other chronic pain; I10 Essential (primary) hypertension; J44.9 Chronic obstructive pulmonary disease, unspecified; F17.210 Nicotine dependence, cigarettes, uncomplicated; Z88.6 Allergy status to analgesic agent; Z79.899 Other long term (current) drug therapy
CPT/HCPCS: 36415; 76705; 76770; 80053; 81001; 83690; 85025; 99285; Q0092

== ENCOUNTER 2017-12-13 22:48 | Emergency (ER) | payer OTHER ==
[~2017-12-13] VITALS: Ht 182.9 cm; Wt 75.3 kg
[2017-12-13 22:53] VITALS: BP 166/110
[2017-12-14] MEDS ORDERED: IBUPROFEN 800 MG TAB PO ONE (00:10)
[2017-12-14 00:30] VITALS: BP 158/94
== END 2017-12-14 00:30 | disposition home or self-care (01) ==
LOC: MED 22:48
DX: T85.848A Pain due to other internal prosthetic devices, implants and grafts, initial encounter (principal); J44.9 Chronic obstructive pulmonary disease, unspecified; I10 Essential (primary) hypertension; Z79.899 Other long term (current) drug therapy; Z88.6 Allergy status to analgesic agent; Z88.8 Allergy status to other drugs, medicaments and biological substances
CPT/HCPCS: 99283

== ENCOUNTER 2017-12-30 18:06 | Inpatient (IN) | payer OTHER ==
[~2017-12-30] VITALS: Ht 182.9 cm; Wt 72.6 kg
[2017-12-30 18:25] VITALS: BP 121/76
[2017-12-30] MEDS ORDERED: cefTRIAXone 1,000 MG in DEXT 5% MINI-BAG PLUS 50 ML IV ONE (18:45)
[2017-12-30] MEDS ORDERED: AZITHROMYCIN 500 MG in DEXTROSE 5% 250 ML IV ONE (18:45)
[2017-12-30] MEDS ORDERED: HYDROcodone/APAP 5/325 MG 1 TAB TAB PO ONE (18:45)
[2017-12-30] MEDS ORDERED: ALBUTEROL 0.083% 2.5 MG/3 ML NEBU INH ONE (18:45)
[2017-12-30] MEDS ORDERED: methylPREDNISolone SS 125 MG/2 ML VIAL IVP ONE (18:45)
[2017-12-30] MEDS ORDERED: IPRATROPIUM 0.02% 0.5 MG/2.5 ML NEBU INH ONE (18:45)
[2017-12-30] MEDS ORDERED: cefTRIAXone 1,000 MG VIAL ONE (19:08)
[2017-12-30] MEDS ORDERED: AZITHROMYCIN 500 MG INJ VIAL IV ONE (19:09)
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
[2017-12-30 19:24] LABS: BASOPHILS % (AUTO) 0.5 % (0.0-2.0); EOSINOPHILS # (AUTO) 0.3 K/uL (0-0.4); EOSINOPHILS % (AUTO) 6.4 % (0.0-4.0); HEMATOCRIT 43.6 % (36-52); HEMOGLOBIN 14.8 g/dL (12.0-18.0); LYMPHOCYTES # (AUTO) 1.6 K/uL (2.0-11.5); LYMPHOCYTES % (AUTO) 33.3 % (20.5-51.1); MEAN CORPUSCULAR HEMOGLOBIN 34 pg (27-31); MEAN CORPUSCULAR HGB CONC 34 g/dL (33-37); MEAN CORPUSCULAR VOLUME 100.8 fL (80-94); MONOCYTES # (AUTO) 0.5 K/uL (0.8-1.0); NEUTROPHILS # (AUTO) 2.3 K/uL (1.8-7.7); NEUTROPHILS % (AUTO) 49.8 % (42.2-75.2); PLATELET COUNT (AUTO) 186 K/uL (140-450); RED BLOOD CELL COUNT(AUTO) 4.33 MIL/uL (4.20-6.10); RED CELL DISTRIBUTION WIDTH 12.9 % (11.6-13.7); WHITE BLOOD COUNT (AUTO) 4.7 K/uL (4.8-10.8)
--- NOTE | 2017-12-30 19:30 | NUR ---
NOTED OPEN WOUNDS ON R UPPER CHEST AND L UPPER CHEST. DRESSINGS CLEAN DRY AND INTACT.
--- NOTE | 2017-12-30 19:45 | NUR ---
ABG ATTEMPTED AND PATIENT RAISING HIS FEET , MOVING ALOT AND WAS UNSUCCESSFUL, PATIENT REFUSED ANOTHER ATTEMPT. DR. FRY WAS NOTED AND JESI NUNES
[2017-12-30 19:47] LABS: ANION GAP 9.6 (8-16); CARBON DIOXIDE 29.7 mmol/L (21-32); CREATININE 1.4 mg/dL (0.7-1.3); POTASSIUM 4.3 mmol/L (3.5-5.1)
--- NOTE | 2017-12-30 19:47 | NUR ---
PATIENT REFUSED ABG DRAW.
[2017-12-30 19:53] LABS: ALBUMIN 3.8 g/dL (3.4-5.0); TOTAL BILIRUBIN 0.4 mg/dL (0.0-1.0)
--- NOTE | 2017-12-30 20:13 | NUR ---
PT RESTING COMFORTABLY IN BED, SPO2 94% ON O2 2L NC, RR 18 EVEN AND UNLABORED, VSS. PT DENIES ANY PAIN, ALL NEEDS MET AT THIS TIME.
[2017-12-30] MEDS ORDERED: LORazepam 2 MG/ML VIAL IVP PRN (21:00)
[2017-12-30] MEDS ORDERED: ACETAMINOPHEN 325 MG TAB PO PRN (21:00)
[2017-12-30] MEDS ORDERED: HYDROcodone/APAP 5/325 MG 1 TAB TAB PO PRN (21:00)
[2017-12-30] MEDS ORDERED: ONDANSETRON 4 MG/2 ML VIAL IVP PRN (21:00)
[2017-12-30] MEDS ORDERED: POTASSIUM CHL 20MEQ/D5-NS 1,000 ML IV ONE (21:00)
[2017-12-30 21:19] LABS: PROTHROMBIN TIME 10.7 secs (10.8-13.4)
--- NOTE | 2017-12-30 22:00 | NUR ---
Patient will be admitted to care of DR. DIAZ. Admited to [facility]. Will go to room 119B Belongings list completed. Report to JESI KAPLAN AT BEDSIDE.
[2017-12-30 22:05] VITALS: BP 102/66
--- NOTE | 2017-12-30 22:05 | NUR ---
RECEIVED REPORT AT BEDSIDE FOR CONTINUITY OF CARE FROM ER NURSE. PT AAOX4. PT IS AMBULATORY. IV NOTED LFA 22G SALINE LOCK. NO SOB NO S/S OF DISTRESS PT IS ON O2 2L NC. BED LOWERED PT ORIENTED TO ROOM WILL CONTINUE TO MONITOR.
[2017-12-30 22:16] LABS: APPEARANCE,URINE CLEAR (CLEAR); BILIRUBIN,URINE NEGATIVE (NEGATIVE); BLOOD, URINE TRACE-I (NEGATIVE); COLOR,URINE YELLOW (YELLOW); LEUKOCYTE ESTERASE ,URINE NEGATIVE (NEGATIVE); NITRITE, URINE NEGATIVE (NEGATIVE); PH,URINE 5.5 (5.0-9.0); UGLUCOSE NEGATIVE (NEGATIVE)
[2017-12-30 22:25] LABS: RBC,URINE 3-10 (FEW) /HPF (0-5); WBC,URINE 0-5 (RARE) /HPF (0-5)
[2017-12-30] MEDS: HYDROmorphone 1 MG/ML AMP IVP PRN (22:47)
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
[2017-12-31] MEDS: ALBUTEROL 0.083% 2.5 MG/3 ML NEBU INH PRN ×4 (00:41→18:59)
[2017-12-31] MEDS: IPRATROPIUM 0.02% 0.5 MG/2.5 ML NEBU INH SCH ×4 (00:41→18:59)
[2017-12-31] MEDS: HYDROmorphone 1 MG/ML AMP IVP PRN ×5 (02:45→20:20)
--- NOTE | 2017-12-31 03:45 | NUR ---
DILAUDID WAS ADMIN 1HR AGO AND PT IS CURRENTLY SLEEPING NO SOB NO S/S OF DISTRESS. WILL CONTINUE TO MONITOR.
[2017-12-31 06:22] LABS: BASOPHILS % (AUTO) 0.3 % (0.0-2.0); EOSINOPHILS % (AUTO) 0.1 % (0.0-4.0); HEMATOCRIT 44.4 % (36-52); HEMOGLOBIN 15.1 g/dL (12.0-18.0); LYMPHOCYTES # (AUTO) 0.6 K/uL (2.0-11.5); LYMPHOCYTES % (AUTO) 18.5 % (20.5-51.1); MEAN CORPUSCULAR HEMOGLOBIN 34 pg (27-31); MEAN CORPUSCULAR HGB CONC 34 g/dL (33-37); MEAN CORPUSCULAR VOLUME 100.7 fL (80-94); MONOCYTES # (AUTO) 0.1 K/uL (0.8-1.0); MONOCYTES % (AUTO) 1.9 % (1.7-9.3); NEUTROPHILS # (AUTO) 2.4 K/uL (1.8-7.7); NEUTROPHILS % (AUTO) 79.2 % (42.2-75.2); PLATELET COUNT (AUTO) 176 K/uL (140-450); RED BLOOD CELL COUNT(AUTO) 4.41 MIL/uL (4.20-6.10); RED CELL DISTRIBUTION WIDTH 12.7 % (11.6-13.7); WHITE BLOOD COUNT (AUTO) 3.1 K/uL (4.8-10.8)
--- NOTE | 2017-12-31 07:20 | NUR ---
ENDORSED REPORT TO DAYSARFT NURSE FOR CONTINUITY OF CARE.
--- NOTE | 2017-12-31 07:25 | NUR ---
RECEIVED PT FROM ACCOUNT AUDITOR NURSE, PT IS AWAKE LYING ON THE BED WITH SIDE RAILS UP AND CALL LIGHT WITHIN REACH. PT HAS AN IV LINE ON THE LEFT ARM G. 22 WITH D51/2 NS AT 80 ML/HR RUNNING. PT HAS AN OPEN WOUND ON THE BILATERAL UPPER SIDE CHEST WITH A DRESSING IN PLACE. PLAN OF CARE WAS DISCUSSED AND PT VERBALIZED UNDERSTANDING. NO SIGN OF DISTRESS NOTED AND WILL CONTINUE TO MONITOR.
[2017-12-31 08:00] VITALS: BP 110/76
--- NOTE | 2017-12-31 08:15 | NUR ---
PT IS AWAKE AND IS HAVING HIS BREAKFAST, VITAL SIGNS TAKEN AND IS STABLE. NO SIGN OF DISTRESS NOTED. WILL MONITOR.
[2017-12-31] MEDS: ENOXAPARIN 30 MG/0.3 ML SYR SUBQ SCH (09:08)
--- NOTE | 2017-12-31 10:09 | NUR ---
PATIENT HAS BEEN SCREENED AND CATEGORIZED HIGH NUTRITION RISK. PATIENT WILL BE SEEN WITHIN 1-2 DAYS OF ADMISSION. 12/31/17 01/01/[address]
--- NOTE | 2017-12-31 11:15 | NUR ---
WOUND CARE NURSEKELY CAME TO ASSESSED THE PT'S WOUND AND DID THE DRESSING CHANGE. NO SIGN OF DISTRESS NOTED TO THE PT AND CONVERSING APROPRIATELY TO THE WOUND CARE NURSE. WILL MONITOR.
--- NOTE | 2017-12-31 11:30 | NUR ---
DR. LARSEN CAME TO THE PT'S ROOM AND SPOKE TO THE PT. MD ASSESSED THE WOUND AND SAID THAT HE CANNOT DO ANYTHING ANYMORE WITH IT. PT VERBALIZED UNDERSTANDING.
--- NOTE | 2017-12-31 12:34 | NUR ---
CM NOTE INITIAL REVIEW FAXED TO [facility] [phone] MARGIE # [phone]
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
[2017-12-31 16:00] VITALS: BP 119/81
--- NOTE | 2017-12-31 16:38 | NUR ---
12/31/17 RD INITIAL ASSESSMENT COMPLETED PLEASE REFER TO NUTRITION ASSESSMENT UNDER CARE ACTIVITY FOR ESTIMATED NUTRITIONAL NEEDS. 1. CONTINUE REGULAR DIET TOLERATED 2. PROVIDED NUTRITION EDUCATION ON COPD AND GENERAL NUTRITION EDUCATION 3. RD TO FOLLOW-UP MODERATE DAYS, 3-5 RISK PAMELLA MILLER, RD
--- NOTE | 2017-12-31 17:09 | NUR ---
LEFT PT SPUTUM CUP
[2017-12-31] MEDS: GABAPENTIN 300 MG CAP PO SCH (17:58)
[2017-12-31] MEDS: methylPREDNISolone SS 125 MG/2 ML VIAL IVP SCH (17:58)
--- NOTE | 2017-12-31 18:00 | NUR ---
PT IS AWAKE AND MEDICATIONS GIVEN VIA ORAL AND IVPB, PT TOERATED IT AND NO SIGN OF DISTRESS NOTED. WILL MONITOR.
[2017-12-31] MEDS: BUDESONIDE 0.5 MG/2 ML NEBU INH SCH (18:58)
--- NOTE | 2017-12-31 19:15 | NUR ---
ENDORSED PT TO TOP FORMER NURSE FOR CONTINUITY OF CARE. PT IS STABLE AT THIS TIME.
--- NOTE | 2017-12-31 19:16 | NUR ---
RECEIVED REPORT FROM DAYSHIFT NURSE AT BEDSIDE FOR CONTINUITY OF CARE PT AAOX4. NO SOB NO S/S OF DISTRESS ON RA. IV NOTED LAC 22G NS 1O ML HR. BED LOWERED CALL LIGHT WITHIN REACH WILL CONTINUE TO MONITOR.
[2017-12-31] MEDS: AZITHROMYCIN 500 MG in DEXTROSE 5% 250 ML IV SCH (20:20)
--- NOTE | 2017-12-31 21:20 | NUR ---
PT RECEIVED PAIN MED 1HR AGO. PT IS SLEEPING NO SOB NO S/S OF DISTRESS WILL CONTINUE TO MONITOR.
[2018-01-01] VITALS: BP 119/77
[2018-01-01] MEDS: IPRATROPIUM 0.02% 0.5 MG/2.5 ML NEBU INH SCH ×4 (00:06→19:19)
[2018-01-01] MEDS: HYDROmorphone 1 MG/ML AMP IVP PRN ×6 (00:30→22:26)
[2018-01-01] MEDS: methylPREDNISolone SS 125 MG/2 ML VIAL IVP SCH ×5 (00:30→23:46)
--- NOTE | 2018-01-01 01:30 | NUR ---
PT RECEIVED PAIN MED 1HR AGO. PT IS SLEEPING NO SOB NO S/S OF DISTRESS WILL CONTINUE TO MONITOR.
[2018-01-01 06:23] LABS: BASOPHILS % (AUTO) 0.2 % (0.0-2.0); HEMATOCRIT 42.5 % (36-52); HEMOGLOBIN 14.4 g/dL (12.0-18.0); LYMPHOCYTES # (AUTO) 0.4 K/uL (2.0-11.5); LYMPHOCYTES % (AUTO) 6.3 % (20.5-51.1); MEAN CORPUSCULAR HEMOGLOBIN 34 pg (27-31); MEAN CORPUSCULAR HGB CONC 34 g/dL (33-37); MEAN CORPUSCULAR VOLUME 100.6 fL (80-94); MONOCYTES % (AUTO) 0.6 % (1.7-9.3); NEUTROPHILS # (AUTO) 5.9 K/uL (1.8-7.7); NEUTROPHILS % (AUTO) 92.9 % (42.2-75.2); PLATELET COUNT (AUTO) 181 K/uL (140-450); RED BLOOD CELL COUNT(AUTO) 4.22 MIL/uL (4.20-6.10); RED CELL DISTRIBUTION WIDTH 12.6 % (11.6-13.7); WHITE BLOOD COUNT (AUTO) 6.3 K/uL (4.8-10.8)
[2018-01-01 07:03] LABS: ANION GAP 9.8 (8-16); CARBON DIOXIDE 30.5 mmol/L (21-32); POTASSIUM 4.3 mmol/L (3.5-5.1)
[2018-01-01] MEDS: BUDESONIDE 0.5 MG/2 ML NEBU INH SCH ×2 (07:07→19:19)
--- NOTE | 2018-01-01 07:20 | NUR ---
ENDORSED REPORT TO DAYSHIFT NURSE AT BEDSIDE FOR CONTINUITY OF CARE.
--- NOTE | 2018-01-01 07:21 | NUR ---
RECEIVED REPORT FROM NIGHT RN. PT RESTING IN BED. AAOX4. NO S/S OF ACUTE DISTRESS. PT DENIES PAIN. IV SITE PATENT AND INTACT. CALL LIGHT WITHIN REACH. SAFETY MEASURES ENSURED. WILL CONTINUE TO MONITOR.
[2018-01-01 07:40] LABS: MAGNESIUM 1.9 mg/dL (1.8-2.4); PHOSPHORUS 1.7 mg/dL (2.5-4.9)
[2018-01-01 08:00] VITALS: BP 130/82
[2018-01-01] MEDS ORDERED: PROPRANOLOL HCL 40 MG PO SCH (09:00)
[2018-01-01] MEDS: PROPRANOLOL 20 MG TAB PO SCH (09:00)
[2018-01-01] MEDS: amLODIPine 5 MG TAB PO SCH (09:00)
[2018-01-01] MEDS: ENOXAPARIN 30 MG/0.3 ML SYR SUBQ SCH (09:00)
[2018-01-01] MEDS: GABAPENTIN 300 MG CAP PO SCH ×3 (09:00→17:04)
--- NOTE | 2018-01-01 10:43 | NUR ---
PT RESTING IN BED. NO S/S OF ACUTE DISTRESS. PT DENIES PAIN. CALL LIGHT WITHIN REACH. WILL CONTINUE TO MONITOR.
--- NOTE | 2018-01-01 12:36 | NUR ---
DUE MEDS GIVEN AT THIS TIME. NO S/S OF ACUTE DISTRESS. PATIENT STATES PAIN BUT WANTS TO WAIT FOR DILAUDID. WILL CONTINUE TO MONITOR.
--- NOTE | 2018-01-01 13:58 | NUR ---
CM NOTE CONCURRENT REVIEW AND ORDER FOR OUTPATIENT [facility] FF UP FAXED TO [facility] [phone] MARGIE # [phone]. [facility] JERICA HANSON AWARE.
--- NOTE | 2018-01-01 15:30 | NUR ---
PT RESTING IN BED. NO S/S OF ACUTE DISTRESS. PT DENIES PAIN. WILL CONTINUE TO MONITOR.
[2018-01-01 16:00] VITALS: BP 125/75
--- NOTE | 2018-01-01 19:21 | NUR ---
ENDORSED PLAN OF CARE TO NIGHT RN.
--- NOTE | 2018-01-01 19:25 | NUR ---
RECEIVED PATIENT SITTING ON BED WITH FAMILY MEMBERS. PATIENT AA0X4,AMBULATORY. DISCUSS PLAN OF CARE AND VERBALIZED UNDERSTANDING. CALL LIGHT WITHIN REACH. WILL CONTINUE TO MONITOR.
[2018-01-01 20:00] VITALS: BP 146/94
[2018-01-01] MEDS: AZITHROMYCIN 500 MG in DEXTROSE 5% 250 ML IV SCH (20:39)
--- NOTE | 2018-01-01 21:00 | NUR ---
SEEN PATIENT WALKING AROUND THE ROOM. MEDICATION GIVEN AND TOLERATED WELL. CALL LIGHT WITHIN REACH.
[2018-01-02] MEDS: IPRATROPIUM 0.02% 0.5 MG/2.5 ML NEBU INH SCH ×2 (01:34→07:05)
[2018-01-02] MEDS: HYDROmorphone 1 MG/ML AMP IVP PRN ×2 (03:51→08:24)
[2018-01-02] MEDS: methylPREDNISolone SS 125 MG/2 ML VIAL IVP SCH (06:00)
[2018-01-02 06:26] LABS: HEMATOCRIT 45.1 % (36-52); HEMOGLOBIN 15.2 g/dL (12.0-18.0); LYMPHOCYTES # (AUTO) 0.6 K/uL (2.0-11.5); LYMPHOCYTES % (AUTO) 5.5 % (20.5-51.1); MEAN CORPUSCULAR HEMOGLOBIN 34 pg (27-31); MEAN CORPUSCULAR HGB CONC 34 g/dL (33-37); MEAN CORPUSCULAR VOLUME 100.9 fL (80-94); MONOCYTES # (AUTO) 0.1 K/uL (0.8-1.0); MONOCYTES % (AUTO) 0.9 % (1.7-9.3); NEUTROPHILS # (AUTO) 9.5 K/uL (1.8-7.7); NEUTROPHILS % (AUTO) 93.6 % (42.2-75.2); PLATELET COUNT (AUTO) 180 K/uL (140-450); RED BLOOD CELL COUNT(AUTO) 4.47 MIL/uL (4.20-6.10); RED CELL DISTRIBUTION WIDTH 12.7 % (11.6-13.7); WHITE BLOOD COUNT (AUTO) 10.2 K/uL (4.8-10.8)
[2018-01-02 06:53] LABS: ANION GAP 11.5 (8-16); CARBON DIOXIDE 30.4 mmol/L (21-32); POTASSIUM 3.9 mmol/L (3.5-5.1)
[2018-01-02] MEDS: BUDESONIDE 0.5 MG/2 ML NEBU INH SCH (07:05)
[2018-01-02 07:12] LABS: MAGNESIUM 1.9 mg/dL (1.8-2.4); PHOSPHORUS 2.3 mg/dL (2.5-4.9)
--- NOTE | 2018-01-02 07:12 | NUR ---
ENDORSEMENT GIVEN AT BEDSIDE TO AM SHIFT NURSE FOR CONTINUITY OF CARE. PATIENT IN STABLE CONDITION.
--- NOTE | 2018-01-02 07:12 | NUR ---
RECEIVED PATIENT FROM ARMATURE WINDER AUTOMOTIVE NURSE MONICA. IV IN LEFT AC, 22 G, PATENT. PT AWAKE STATED HE IS IN PAIN AND REQUEST DILAUDID. WILL MEDICATE ACCORDING TO DRS ORDER, UPDATED BOARD, EDIT PLAN OF CARE, WILL CONTINUE TO MONITOR.
[2018-01-02 08:00] VITALS: BP 127/85
[2018-01-02] MEDS: GABAPENTIN 300 MG CAP PO SCH (08:24)
[2018-01-02] MEDS: PROPRANOLOL 20 MG TAB PO SCH (08:24)
[2018-01-02] MEDS: amLODIPine 5 MG TAB PO SCH (08:25)
[2018-01-02] MEDS: ENOXAPARIN 30 MG/0.3 ML SYR SUBQ SCH (08:25)
--- NOTE | 2018-01-02 08:25 | NUR ---
PT REFUSED LOVENOX WILL HOLD.
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
--- NOTE | 2018-01-02 14:37 | NUR ---
CM NOTE PROGRESS NOTE FAXED TO [facility] [phone]. [facility] JERICA HANSON INFORMED THAT PATIENT WENT AMA
== END 2018-01-02 08:56 | disposition left against medical advice (07) | DRG 871 ==
LOC: MED 18:06 → MTU 21:07
PROVIDERS: ADMIT Internal Medicine Pulmonary Disease; ATTEND Internal Medicine Pulmonary Disease
DX: A41.9 Sepsis, unspecified organism (principal); J96.00 Acute respiratory failure, unspecified whether with hypoxia or hypercapnia; J44.1 Chronic obstructive pulmonary disease with (acute) exacerbation; J44.0 Chronic obstructive pulmonary disease with (acute) lower respiratory infection; J20.9 Acute bronchitis, unspecified; F17.200 Nicotine dependence, unspecified, uncomplicated; N18.9 Chronic kidney disease, unspecified; Z53.21 Procedure and treatment not carried out due to patient leaving prior to being seen by health care provider; I12.9 Hypertensive chronic kidney disease with stage 1 through stage 4 chronic kidney disease, or unspecified chronic kidney disease; Z88.8 Allergy status to other drugs, medicaments and biological substances; Z79.899 Other long term (current) drug therapy
CPT/HCPCS: 36415; 71045; 80048; 80053; 81001; 83735; 83880; 84100; 84484; 85025; 85610; 85730; 87040; 87070; 87081; 87205; 93005; 94640; 96365; 96367; 96375; 99285; J0456; J0696; J1170; J1650; J2405; J2930; J7030; J7060; J7613; J7626; J7644

== ENCOUNTER 2018-01-03 20:58 | Emergency (ER) | payer OTHER ==
[~2018-01-03] VITALS: Ht 182.9 cm; Wt 72.6 kg
[2018-01-03 21:00] VITALS: BP 134/100
--- NOTE | 2018-01-03 21:08 | NUR ---
Patient ambulated to bed 3. RN evaluating patient at bedside.
[2018-01-03] MEDS ORDERED: NITROGLYCERIN 0.4 MG TAB SL ONE (21:15)
[2018-01-03] MEDS ORDERED: MORPHINE SULFATE 2 MG/ML SYR IVP ONE (21:15)
[2018-01-03] MEDS ORDERED: ONDANSETRON 4 MG/2 ML VIAL IVP ONE (21:15)
[2018-01-03] MEDS ORDERED: NACL 0.9% 1,000 ML IV ONE (21:15)
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
--- NOTE | 2018-01-03 21:30 | NUR ---
Dr. Denis evaluating patient at bedside.
[2018-01-03 21:36] LABS: BASOPHILS % (AUTO) 0.3 % (0.0-2.0); EOSINOPHILS # (AUTO) 0.4 K/uL (0-0.4); EOSINOPHILS % (AUTO) 4.4 % (0.0-4.0); HEMATOCRIT 47.9 % (36-52); HEMOGLOBIN 16.2 g/dL (12.0-18.0); LYMPHOCYTES # (AUTO) 1.8 K/uL (2.0-11.5); LYMPHOCYTES % (AUTO) 22.8 % (20.5-51.1); MEAN CORPUSCULAR HEMOGLOBIN 34 pg (27-31); MEAN CORPUSCULAR HGB CONC 34 g/dL (33-37); MEAN CORPUSCULAR VOLUME 99.5 fL (80-94); MONOCYTES # (AUTO) 0.6 K/uL (0.8-1.0); MONOCYTES % (AUTO) 7.5 % (1.7-9.3); NEUTROPHILS # (AUTO) 5.3 K/uL (1.8-7.7); PLATELET COUNT (AUTO) 198 K/uL (140-450); RED BLOOD CELL COUNT(AUTO) 4.81 MIL/uL (4.20-6.10); RED CELL DISTRIBUTION WIDTH 12.9 % (11.6-13.7); WHITE BLOOD COUNT (AUTO) 8.1 K/uL (4.8-10.8)
[2018-01-03 21:53] LABS: PROTHROMBIN TIME 9.9 secs (10.8-13.4)
--- NOTE | 2018-01-03 22:01 | NUR ---
PT RESTING, VITALS STABLE
[2018-01-03 22:12] LABS: ALBUMIN 3.9 g/dL (3.4-5.0); ANION GAP 12.6 (8-16); CARBON DIOXIDE 28.5 mmol/L (21-32); CREATININE 1.2 mg/dL (0.7-1.3); POTASSIUM 3.1 mmol/L (3.5-5.1); TOTAL BILIRUBIN 0.3 mg/dL (0.0-1.0)
[2018-01-03 22:12] LABS: BARBITURATE, URINE NEG. ng/ml (NEG <=200); BENZODIAZEPINE, URINE NEG. ng/mL (NEG <=200); CANNABINOID, URINE NEG. ng/mL (NEG <=50); COCAINE, URINE NEG. ng/mL (NEG <=300); OPIATE, URINE NEG. ng/mL (NEG <=2000); PHENCYCLIDINE SCREEN,URINE NEG. ng/mL (NEG <=25)
--- NOTE | 2018-01-03 23:23 | NUR ---
WITH PT AT BEDSIDE
[2018-01-04 00:36] VITALS: BP 124/91
--- NOTE | 2018-01-04 00:37 | NUR ---
Patient discharged with v/s stable. Written and verbal after care instructions given and explained. Patient alert, oriented and verbalized understanding of instructions. Ambulatory with steady gait. All questions addressed prior to discharge. ID band removed. Patient advised to follow up with PMD. Rx of ADVAIR, PROPANOLOL, RELION VENTOLIN, PERCOCET, GABAPENTIN, NORVASC, SPIRIVA given. Patient educated on indication of medication including possible reaction and side effects. Opportunity to ask questions provided and answered.
== END 2018-01-04 00:37 | disposition home or self-care (01) ==
LOC: MED 20:58
DX: J44.1 Chronic obstructive pulmonary disease with (acute) exacerbation (principal); G89.4 Chronic pain syndrome; I10 Essential (primary) hypertension; F17.210 Nicotine dependence, cigarettes, uncomplicated; Z87.442 Personal history of urinary calculi; Z88.8 Allergy status to other drugs, medicaments and biological substances; Z79.899 Other long term (current) drug therapy
CPT/HCPCS: 36415; 71045; 80053; 80305; 84484; 85025; 85610; 85730; 93005; 96374; 96375; 99285; J2270; J2405; Q0092

== ENCOUNTER 2018-03-17 17:08 | Emergency (ER) | payer OTHER ==
[~2018-03-17] VITALS: Ht 182.9 cm; Wt 70.3 kg
[2018-03-17 17:11] VITALS: BP 144/89
--- NOTE | 2018-03-17 17:15 | NUR ---
PT CAME INTO THE ED W/ C/O LEFT HAND PARESTHESIA, PAIN, UNABLE TO MOVE FINGERS X THIS AM. 7/10 TINGLING SENSATION THAT IS NON RADIATING ON L HAND SINCE THIS MORNING. DENIES INJURY. DENIES N/V/D. RR EVEN AND UNLABORED. ABLE TO MOVE HAND AND WIGGLE FINGERS. CAP REFILL LESS THAN 3 SEC. ER MD MADE AWARE. SAFETY PRECAUTIONS IMPLEMENTED. WILL CONTINUE TO MONITOR.
--- NOTE | 2018-03-17 17:19 | NUR ---
Patient being evaluated by SUSHIL SEALS at bedside.
[2018-03-17] MEDS ORDERED: ACETAMINOPHEN 325 MG TAB PO ONE (17:40)
--- NOTE | 2018-03-17 17:50 | NUR ---
PT. TAKEN TO CT SCAN VIA WHEELCHAIR BY TECH
[2018-03-17 18:27] VITALS: BP 138/86
--- NOTE | 2018-03-17 18:27 | NUR ---
Patient discharged with v/s stable. Written and verbal after care instructions given and explained. Patient alert, oriented and verbalized understanding of instructions. Ambulatory with steady gait. All questions addressed prior to discharge. ID band removed. Patient advised to follow up with PMD. Rx of ACETAMINOPHEN 500MG given. Patient educated on indication of medication including possible reaction and side effects. Opportunity to ask questions provided and answered.
== END 2018-03-17 18:27 | disposition home or self-care (01) ==
LOC: MED 17:08
DX: R53.1 Weakness (principal); M25.532 Pain in left wrist; J44.9 Chronic obstructive pulmonary disease, unspecified; I10 Essential (primary) hypertension; F17.210 Nicotine dependence, cigarettes, uncomplicated; Z88.1 Allergy status to other antibiotic agents; Z79.899 Other long term (current) drug therapy
CPT/HCPCS: 70450; 99284

== ENCOUNTER 2018-04-30 16:20 | Emergency (ER) | payer OTHER ==
[~2018-04-30] VITALS: Ht 182.9 cm; Wt 76.0 kg
[2018-04-30 16:35] VITALS: BP 138/85
[2018-04-30 17:50] LABS: APPEARANCE,URINE CLEAR (CLEAR); BILIRUBIN,URINE NEGATIVE (NEGATIVE); BLOOD, URINE LARGE (NEGATIVE); COLOR,URINE YELLOW (YELLOW); LEUKOCYTE ESTERASE ,URINE NEGATIVE (NEGATIVE); NITRITE, URINE NEGATIVE (NEGATIVE); PH,URINE 7.5 (5.0-9.0); UGLUCOSE NEGATIVE (NEGATIVE)
[2018-04-30] MEDS: ACETAMINOPHEN EXTRA STRENGTH 500 MG TAB PO ONE (18:23)
[2018-04-30 19:00] VITALS: BP 138/85
== END 2018-04-30 19:00 | disposition home or self-care (01) ==
LOC: MED 16:20
DX: R33.9 Retention of urine, unspecified (principal); J44.9 Chronic obstructive pulmonary disease, unspecified; I10 Essential (primary) hypertension; Z88.6 Allergy status to analgesic agent; Z79.899 Other long term (current) drug therapy
CPT/HCPCS: 81002; 81003; 99284

== ENCOUNTER 2018-08-12 06:50 | Emergency (ER) | payer OTHER ==
[~2018-08-12] VITALS: Ht 182.9 cm; Wt 72.6 kg
--- NOTE | 2018-08-12 06:55 | NUR ---
AMBULATED TO ER BED 6
[2018-08-12 06:59] VITALS: BP 152/98
[2018-08-12] MEDS ORDERED: ONDANSETRON 4 MG/2 ML VIAL IVP ONE (07:15)
[2018-08-12] MEDS ORDERED: MORPHINE SULFATE 2 MG/ML SYR IVP ONE (07:15)
--- NOTE | 2018-08-12 07:30 | NUR ---
US AT BEDSIDE.
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
--- NOTE | 2018-08-12 07:30 | NUR ---
LAB AT BEDSIDE.
[2018-08-12 07:34] LABS: BASOPHILS % (AUTO) 0.5 % (0.0-2.0); EOSINOPHILS # (AUTO) 0.2 K/uL (0-0.4); EOSINOPHILS % (AUTO) 3.1 % (0.0-4.0); HEMATOCRIT 46.6 % (36-52); HEMOGLOBIN 16.1 g/dL (12.0-18.0); MEAN CORPUSCULAR HEMOGLOBIN 34 pg (27-31); MEAN CORPUSCULAR HGB CONC 35 g/dL (33-37); MEAN CORPUSCULAR VOLUME 98.5 fL (80-94); MONOCYTES # (AUTO) 0.7 K/uL (0.8-1.0); MONOCYTES % (AUTO) 10.7 % (1.7-9.3); NEUTROPHILS # (AUTO) 3.6 K/uL (1.8-7.7); NEUTROPHILS % (AUTO) 54.7 % (42.2-75.2); PLATELET COUNT (AUTO) 243 K/uL (140-450); RED BLOOD CELL COUNT(AUTO) 4.74 MIL/uL (4.20-6.10); RED CELL DISTRIBUTION WIDTH 13.8 % (11.6-13.7); WHITE BLOOD COUNT (AUTO) 6.5 K/uL (4.8-10.8)
[2018-08-12 07:41] LABS: APPEARANCE,URINE SL CLOUDY (CLEAR); BILIRUBIN,URINE 1+ (NEGATIVE); BLOOD, URINE 3+ (NEGATIVE); COLOR,URINE YELLOW (YELLOW); LEUKOCYTE ESTERASE ,URINE NEGATIVE (NEGATIVE); NITRITE, URINE NEGATIVE (NEGATIVE); PH,URINE 5.5 (5.0-9.0); UGLUCOSE NEGATIVE (NEGATIVE)
[2018-08-12 07:42] LABS: CARBON DIOXIDE 24.8 mmol/L (21-32); POTASSIUM 3.8 mmol/L (3.5-5.1)
[2018-08-12 07:48] LABS: ALBUMIN 3.9 g/dL (3.4-5.0); TOTAL BILIRUBIN 0.3 mg/dL (0.0-1.0)
[2018-08-12] MEDS ORDERED: ALBUTEROL 0.083% 2.5 MG/3 ML NEBU INH ONE (07:50)
[2018-08-12] MEDS ORDERED: IPRATROPIUM 0.02% 0.5 MG/2.5 ML NEBU INH ONE (07:50)
[2018-08-12 08:05] LABS: RBC,URINE 50-80 /HPF (0-5)
[2018-08-12 08:06] LABS: WBC,URINE 0-5 /HPF (0-5)
--- NOTE | 2018-08-12 08:37 | NUR ---
Patient appears to be resting comfortably in bed. Vital Signs within normal limits. Respirations even and unlabored, pt states to feeling relief after breathing treatment.
[2018-08-12 09:27] VITALS: BP 140/98
== END 2018-08-12 09:27 | disposition home or self-care (01) ==
LOC: MED 06:50
DX: N20.0 Calculus of kidney (principal); J44.1 Chronic obstructive pulmonary disease with (acute) exacerbation; I10 Essential (primary) hypertension; F17.200 Nicotine dependence, unspecified, uncomplicated; Z90.49 Acquired absence of other specified parts of digestive tract; Z79.899 Other long term (current) drug therapy; Z88.6 Allergy status to analgesic agent
CPT/HCPCS: 36415; 76770; 80053; 81001; 85025; 87086; 94640; 96374; 96375; 99284; J2270; J2405; J7613; J7644; Q0092; 99283

== ENCOUNTER 2018-09-06 18:31 | Emergency (ER) | payer OTHER ==
[~2018-09-06] VITALS: Ht 182.9 cm; Wt 72.6 kg
[2018-09-06 18:36] VITALS: BP 150/108
--- NOTE | 2018-09-06 18:40 | NUR ---
dr jenkins at bedside
[2018-09-06] MEDS ORDERED: ALBUTEROL SULFATE/IPRATROPIU 3 ML SOL IH ONE (18:50)
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
--- NOTE | 2018-09-06 19:21 | NUR ---
report given to caroline lynch
--- NOTE | 2018-09-06 19:31 | NUR ---
XX-Ray at bedside.
--- NOTE | 2018-09-06 19:33 | NUR ---
xray done, pt tolerated procedure well.
--- NOTE | 2018-09-06 20:25 | NUR ---
PT C/O OF 12/09 PAIN. ER AWARE.
[2018-09-06 21:13] VITALS: BP 150/108
== END 2018-09-06 21:13 | disposition home or self-care (01) ==
LOC: MED 18:31
DX: J44.9 Chronic obstructive pulmonary disease, unspecified (principal); I10 Essential (primary) hypertension; F17.210 Nicotine dependence, cigarettes, uncomplicated; Z90.49 Acquired absence of other specified parts of digestive tract; Z87.442 Personal history of urinary calculi; Z79.899 Other long term (current) drug therapy; Z88.8 Allergy status to other drugs, medicaments and biological substances
CPT/HCPCS: 71045; 94640; 94760; 99283; J7620; Q0092

== ENCOUNTER 2018-09-15 06:14 | Emergency (ER) | payer OTHER ==
[~2018-09-15] VITALS: Ht 170.2 cm; Wt 68.0 kg
--- NOTE | 2018-09-15 06:16 | NUR ---
PT AMBULATED TO ER BED 6
[2018-09-15 06:19] VITALS: BP 135/101
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
--- NOTE | 2018-09-15 06:42 | NUR ---
ERMD AT BEDSIDE
[2018-09-15] MEDS ORDERED: NACL 0.9% 1,000 ML IV ONE (06:47)
[2018-09-15] MEDS ORDERED: NACL 0.9% 1,000 ML IV SCH (06:47)
[2018-09-15] MEDS ORDERED: MORPHINE SULFATE 4 MG/ML SYR IVP ONE (06:50)
[2018-09-15] MEDS ORDERED: ONDANSETRON 4 MG/2 ML VIAL IVP ONE (06:50)
--- NOTE | 2018-09-15 07:16 | NUR ---
PT WENT TO CT.
--- NOTE | 2018-09-15 07:18 | NUR ---
REPORT GIVEN TO JESI HOUSER. TRANSFER OF CARE AT THIS TIME.
[2018-09-15] MEDS ORDERED: GLYCOPYRROLATE 0.2 MG/ML VIAL IV ONE (07:25)
--- NOTE | 2018-09-15 07:48 | NUR ---
LAB AT BEDSIDE.
[2018-09-15 08:37] LABS: BASOPHILS % (AUTO) 0.5 % (0.0-2.0); EOSINOPHILS # (AUTO) 0.1 K/uL (0-0.4); EOSINOPHILS % (AUTO) 1.4 % (0.0-4.0); HEMATOCRIT 43.7 % (36-52); HEMOGLOBIN 14.8 g/dL (12.0-18.0); LYMPHOCYTES # (AUTO) 1.3 K/uL (2.0-11.5); LYMPHOCYTES % (AUTO) 19.5 % (20.5-51.1); MEAN CORPUSCULAR HEMOGLOBIN 34 pg (27-31); MEAN CORPUSCULAR HGB CONC 34 g/dL (33-37); MEAN CORPUSCULAR VOLUME 99.8 fL (80-94); MONOCYTES # (AUTO) 0.6 K/uL (0.8-1.0); MONOCYTES % (AUTO) 9.6 % (1.7-9.3); NEUTROPHILS # (AUTO) 4.6 K/uL (1.8-7.7); PLATELET COUNT (AUTO) 183 K/uL (140-450); RED BLOOD CELL COUNT(AUTO) 4.38 MIL/uL (4.20-6.10); RED CELL DISTRIBUTION WIDTH 13.5 % (11.6-13.7); WHITE BLOOD COUNT (AUTO) 6.7 K/uL (4.8-10.8)
[2018-09-15 08:51] LABS: APPEARANCE,URINE CLEAR (CLEAR); BILIRUBIN,URINE NEGATIVE (NEGATIVE); BLOOD, URINE 3+ (NEGATIVE); COLOR,URINE YELLOW (YELLOW); LEUKOCYTE ESTERASE ,URINE NEGATIVE (NEGATIVE); NITRITE, URINE NEGATIVE (NEGATIVE); UGLUCOSE NEGATIVE (NEGATIVE)
[2018-09-15 08:52] LABS: ALBUMIN 3.4 g/dL (3.4-5.0); ANION GAP 8.9 (8-16); POTASSIUM 3.9 mmol/L (3.5-5.1)
--- NOTE | 2018-09-15 09:06 | NUR ---
report recieved from lacho lynch
[2018-09-15] MEDS ORDERED: MORPHINE SULFATE 4 MG/ML SYR IM ONE (09:15)
[2018-09-15 09:18] LABS: WBC,URINE 0-5 /HPF (0-5)
[2018-09-15 09:30] VITALS: BP 131/96
--- NOTE | 2018-09-15 09:30 | NUR ---
Patient discharged with v/s stable. Written and verbal after care instructions given and explained. Patient alert, oriented and verbalized understanding of instructions. Ambulatory with steady gait. All questions addressed prior to discharge. ID band removed. Patient advised to follow up with PMD. Rx of tramodol hydrochloride, bentyl given. Patient educated on indication of medication including possible reaction and side effects. Opportunity to ask questions provided and answered.
[2018-09-15 09:37] LABS: BARBITURATE, URINE NEG. ng/ml (NEG <=200); BENZODIAZEPINE, URINE NEG. ng/mL (NEG <=200); CANNABINOID, URINE NEG. ng/mL (NEG <=50); COCAINE, URINE NEG. ng/mL (NEG <=300); OPIATE, URINE POS. ng/mL (NEG <=2000); PHENCYCLIDINE SCREEN,URINE NEG. ng/mL (NEG <=25)
== END 2018-09-15 09:30 | disposition home or self-care (01) ==
LOC: MED 06:14
DX: N20.9 Urinary calculus, unspecified (principal); J44.9 Chronic obstructive pulmonary disease, unspecified; I10 Essential (primary) hypertension; F17.200 Nicotine dependence, unspecified, uncomplicated; Z88.8 Allergy status to other drugs, medicaments and biological substances; Z79.899 Other long term (current) drug therapy
CPT/HCPCS: 36415; 74176; 80053; 80305; 81001; 82150; 83690; 84550; 85025; 87086; 96374; 96375; 96376; 99284; J2270; J2405; J3490; J7030

== ENCOUNTER 2018-10-01 19:46 | Emergency (ER) | payer OTHER ==
[~2018-10-01] VITALS: Ht 182.9 cm; Wt 72.6 kg
[2018-10-01 19:51] VITALS: BP 142/90
--- NOTE | 2018-10-01 19:52 | NUR ---
TO LOBBY A/W BED, AMBULATORY
[2018-10-01 19:53] VITALS: BP 142/90
[2018-10-01 20:46] LABS: BASOPHILS % (AUTO) 0.3 % (0.0-2.0); EOSINOPHILS # (AUTO) 0.1 K/uL (0-0.4); EOSINOPHILS % (AUTO) 0.6 % (0.0-4.0); HEMATOCRIT 48.2 % (36-52); HEMOGLOBIN 16.3 g/dL (12.0-18.0); LYMPHOCYTES # (AUTO) 1.2 K/uL (2.0-11.5); LYMPHOCYTES % (AUTO) 12.4 % (20.5-51.1); MEAN CORPUSCULAR HEMOGLOBIN 34 pg (27-31); MEAN CORPUSCULAR HGB CONC 34 g/dL (33-37); MEAN CORPUSCULAR VOLUME 99.8 fL (80-94); MONOCYTES # (AUTO) 0.6 K/uL (0.8-1.0); MONOCYTES % (AUTO) 6.3 % (1.7-9.3); NEUTROPHILS # (AUTO) 7.6 K/uL (1.8-7.7); NEUTROPHILS % (AUTO) 80.4 % (42.2-75.2); PLATELET COUNT (AUTO) 253 K/uL (140-450); RED BLOOD CELL COUNT(AUTO) 4.84 MIL/uL (4.20-6.10); RED CELL DISTRIBUTION WIDTH 13.4 % (11.6-13.7); WHITE BLOOD COUNT (AUTO) 9.5 K/uL (4.8-10.8)
[2018-10-01 20:57] LABS: ANION GAP 10.4 (8-16); CARBON DIOXIDE 28.7 mmol/L (21-32); CREATININE 0.9 mg/dL (0.7-1.3); POTASSIUM 4.1 mmol/L (3.5-5.1)
[2018-10-01 21:02] LABS: ALBUMIN 3.8 g/dL (3.4-5.0); TOTAL BILIRUBIN 0.4 mg/dL (0.0-1.0)
--- NOTE | 2018-10-01 21:06 | NUR ---
AMBULATED TO ER BED 4
--- NOTE | 2018-10-01 21:12 | NUR ---
BIB SELF WITH REPORTS OF CHEST PAIN STARTING 2 HOURS PRIOR TO ARRIVAL WHILE WATCHING TV. STATES PAIN IS WORSE WHEN HE COUGHS. STATES THE PAIN IS SHARP AND NON RADIATING. NO OTHER SYMPTOMS REPORTED AT THIS TIME. PT POSTITIONED FOR COMFORT.
--- NOTE | 2018-10-01 22:26 | NUR ---
PATIENT LWBS AT THIS TIME.
== END 2018-10-01 22:26 | disposition left against medical advice (07) ==
LOC: MED 19:46
DX: R07.9 Chest pain, unspecified (principal); Z53.21 Procedure and treatment not carried out due to patient leaving prior to being seen by health care provider
CPT/HCPCS: 36415; 71045; 80053; 84484; 85025; 93005; 99281